=== PATIENT | male | born 1965 | race Caucasian/White ===

== ENCOUNTER 2018-06-08 02:57 | Observation (INO) | payer MEDICARE ==
[2018-06-08 03:44] VITALS: BMI 23.3
--- NOTE | 2018-06-08 04:57 | PDOC ---
Attending Attestation - Resident Resident Name: FreddieBrandon - ED Attending Attestation I have performed the following: I have examined & evaluated the patient, The case was reviewed & discussed with the resident, I agree w/resident's findings & plan - HPI HPI: 06/08/18 06:25 53-year-old male complaining of sharp left-sided chest pain that began around 4 PM. Patient denies active shortness of breath. There is no associated diaphoresis or trauma. - Physicial Exam PE: 06/08/18 06:27 Agree with resident's exam - Medical Decision Making 06/08/18 06:28 53-year-old male with sharp left-sided chest pain EKG showed no acute ST segment changes Plan for chest x-ray and labs, admission to medical service Assessment 324 mg he had been in the emergency department as well as 1/2 inch of nitro paste
[2018-06-08 05:41] LABS: BASO % 0.7 % (0-2.0); EOS % 3.9 % (0-4.5); HEMATOCRIT 34.2 % (35.4-49); HEMOGLOBIN 12.6 GM/dL (11.7-16.9); LYMPH % 16.3 % (8-40); MCH 31.5 pg (25.7-33.7); MCHC 36.7 g/dl (32.0-35.9); MEAN CELL VOLUME 85.8 fl (80-96); MEAN PLT VOLUME 7.4 fl (7.5-11.1); MONO % 6.7 % (3.8-10.2); NEUT % 72.4 % (42.8-82.8); PLATELET COUNT 271 K/MM3 (134-434); RBC 3.99 M/mm3 (4.00-5.60); RDW 12.7 % (11.9-15.9); WHITE BLOOD COUNT 9.8 K/mm3 (4.0-10.0)
--- NOTE | 2018-06-08 06:25 | PDOC ---
History of Present Illness - General Chief Complaint: Chest Pain Stated Complaint: CHEST PAIN Time Seen by Provider: 06/08/18 04:53 History Source: Patient Exam Limitations: No Limitations - History of Present Illness Initial Comments: 06/08/18 06:28 53 yo M with a hx of CVA (04/24/2018 with right UE and LE weakness, right eye deficits, and slurred speech), HTN, HLD, and DM presents to the emergency department with chest pain with sudden onset at 4pm with no previous hx of similar pain. Per the patient, he states it was while at rest, sharp pain, 10/10 , non radiating, with the following associative symptoms of SOB and diaphoresis. Denies nausea and vomiting and worsening pain on exertion. 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 Per the patient, he took his aspirin today at 12 pm (81 mg). Denies the following: fever , chills, headaches, visual changes, abdominal pain, dysuria, hematuria, diarrhea, and hematochezia. Shx: None Meds: Does not know but denies anti-coagulation Allergies: NKDA Social: Denies current tobacco, alcohol, and substance abuse. Has a hx of tobacco and alcohol abuse. 06/08/18 06:31 Past History - Past Medical History Allergies/Adverse Reactions: Allergies Allergy/AdvReac Type Severity Reaction Status Date / Time No Known Allergies Allergy Verified 06/08/18 03:42 Home Medications: Ambulatory Orders Aspirin [Aspirin EC] 81 mg PO DAILY 06/08/18 Atorvastatin Ca [Lipitor] 80 mg PO HS 06/08/18 Clopidogrel Bisulfate [Clopidogrel] 75 mg PO DAILY 06/08/18 Glipizide 5 mg PO DAILY 06/08/18 Lisinopril 10 mg PO DAILY 06/08/18 Metformin HCl [Glucophage] 1,000 mg PO BID 06/08/18 COPD: No Diabetes: Yes HTN: Yes Hypercholesterolemia: Yes - Suicide/Smoking/Psychosocial Hx Smoking History: Never smoked Have you smoked in the past 12 months: No Information on smoking cessation initiated: No Hx Alcohol Use: No Drug/Substance Use Hx: No Review of Systems - Review of Systems Able to Perform ROS?: Yes Is the patient limited Georgian proficient: No Constitutional: Yes: Diaphoresis. No: Chills, Fever, Weakness HEENTM: No: Eye Pain, Recent change in vision, Ear Pain, Nose Pain, Throat Pain , Mouth Pain Respiratory: Yes: Shortness of Breath. No: Cough, SOB with Exertion, Hemoptysis Cardiac (ROS): Yes: Chest Pain. No: Lightheadedness, Palpitations, Syncope, Chest Tightness ABD/GI: No: Constipated, Diarrhea, Nausea, Rectal Bleeding, Vomiting, Tarry Stools : No: Burning, Dysuria, Hematuria, Urgency Musculoskeletal: No: Back Pain, Joint Pain, Neck Pain Integumentary: No: Bruising, Erythema, Rash Neurological: No: Headache, Numbness, Tingling, Tremors, Ataxia, Dizziness Psychiatric: No: Change in Appetite Endocrine: No: Unexplained Weight Gain Hematologic/Lymphatic: No: Anemia *Physical Exam - Vital Signs Last Vital Signs Temp Pulse Resp BP Pulse Ox 98.8 F 83 20 155/99 99 06/08/18 03:05 06/08/18 03:05 06/08/18 03:05 06/08/18 03:05 06/08/18 03:05 - Physical Exam General Appearance: Yes: Nourished, Appropriately Dressed. No: Apparent Distress, Intoxicated HEENT: positive: EOMI, SHANA, Normal Voice, Symmetrical, Pharynx Normal, Hearing Grossly Normal. negative: Pale Conjunctivae, Scleral Icterus (R), Scleral Icterus (L), Muffled/Hoarse voice, Pharyngeal Erythema, Tonsillar Exudate, Tonsillar Erythema, Nasal Congestion, Rhinorrhea, Excessive drooling Neck: positive: Trachea midline, Supple. negative: Tender, Lymphadenopathy (R) , Lymphadenopathy (L), Tender lateral, Tender midline Respiratory/Chest: positive: Lungs Clear, Normal Breath Sounds. negative: Chest Tender, Respiratory Distress, Accessory Muscle Use, Crackles, Rales, Rhonchi, Stridor, Wheezing Cardiovascular: positive: Regular Rhythm, Regular Rate, S1, S2. negative: Systolic Murmur Gastrointestinal/Abdominal: positive: Normal Bowel Sounds, Flat, Soft. negative : Tender, Rebound, Tenderness Lymphatic: negative: Adenopathy Musculoskeletal: positive: Normal Inspection. negative: CVA Tenderness, Vertebral Tenderness Extremity: positive: Normal Capillary Refill, Normal Inspection, Normal Range of Motion. 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 negative: EOM Palsy, Facial Droop , Sensory Deficit Moderate Sedation - Procedure Monitoring Vital Signs: Procedure Monitoring Vital Signs Temperature 98.8 F 06/08/18 03:05 Pulse Rate 83 06/08/18 03:05 Respiratory Rate 20 06/08/18 03:05 Blood Pressure 155/99 06/08/18 03:05 O2 Sat by Pulse Oximetry (%) 99 06/08/18 03:05 Heart Score/ECG Review - ECG Intrepretation Comment:: 06/08/18 06:39 ventricular rate is 78 bpm, CO is 162 ms, QRS is 90 ms, QTc is 408 ms. Sinus rhythm with fusion complexes. No ST elevations or depressions. ED Treatment Course - LABORATORY CBC & Chemistry Diagram: 06/09/18 05:30 06/09/18 05:30 - ADDITIONAL ORDERS Additional order review: 06/08/18 05:06 RBC 3.99 L MCV 85.8 MCHC 36.7 H RDW 12.7 MPV 7.4 L Neutrophils % 72.4 Lymphocytes % 16.3 Monocytes % 6.7 Eosinophils % 3.9 Basophils % 0.7 - RADIOLOGY Radiology Studies Ordered: Category Date Time Status CHEST X-RAY PORTABLE* [RAD] Stat Radiology 06/08/18 04:44 Taken Medical Decision Making - Medical Decision Making 06/08/18 06:40 53 yo M with a hx of CVA (04/24/2018 with right UE and LE weakness, right eye deficits, and slurred speech), HTN, HLD, and DM presents to the emergency department with chest pain with sudden onset at 4pm with no previous hx of similar pain Initial vitals; Initial Vital Signs Temp Pulse Resp BP Pulse Ox 98.8 F 83 20 155/99 99 06/08/18 03:05 06/08/18 03:05 06/08/18 03:05 06/08/18 03:05 06/08/18 03:05 Work up:" ddx: ACS work up, pericarditis vs PNA vs pleuritis vs msk pain Laboratory Tests 06/08/18 06/08/18 05:06 05:06 WBC 9.8 RBC 3.99 L Hgb 12.6 Hct 34.2 L MCV 85.8 MCH 31.5 MCHC 36.7 H RDW 12.7 Plt Count 271 MPV 7.4 L Absolute Neuts (auto) 7.1 Neutrophils % 72.4 Lymphocytes % 16.3 Monocytes % 6.7 Eosinophils % 3.9 Basophils % 0.7 Nucleated RBC % 0 Sodium 138 Potassium 4.5 Chloride 104 Carbon Dioxide 29 Anion Gap 5 L BUN 18 Creatinine 1.0 Creat Clearance w eGFR > 60 Random Glucose 164 H Calcium 8.6 Total Bilirubin 1.1 H AST 16 ALT 26 Alkaline Phosphatase 178 H Creatine Kinase 60 Troponin I < 0.02 B-Natriuretic Peptide 139.6 H Total Protein 6.8 Albumin 3.6 no troponin increase. BNP elevated midly. CXR does not show acute infiltrate. EKG shows no ST elevations or depressions. will admit patient to obs tele. Patient signed out to Dr. Hernandez. Dispo: Admit 06/08/18 07:17 *DC/Admit/Observation/Transfer Diagnosis at time of Disposition: Chest pain Qualifiers: Chest pain type: unspecified Qualified Code(s): R07.9 - Chest pain, unspecified - Referrals - Patient Instructions - Post Discharge Activity
[2018-06-08] MEDS ORDERED: ASPIRIN 81 MG CHEWABLE TABLETS PO ONE (06:27)
[2018-06-08] MEDS ORDERED: NITROGLYCERIN SUBLINGUAL 1/200 0.3 MG BTL SL ONE (06:27)
[2018-06-08] MEDS ORDERED: ASPIRIN 81 MG CHEWABLE TABLETS ONE (06:31)
[2018-06-08] MEDS ORDERED: NITROGLYCERIN SUBLINGUAL 1/150 0.4 MG TAB SL ONE (06:31)
[2018-06-08] MEDS ORDERED: NITROGLYCERIN SUBLINGUAL 1/150 0.4 MG TAB ONE (06:34)
[2018-06-08 06:35] LABS: ALBUMIN 3.6 g/dl (3.4-5.0); ALK PHOS 178 U/L (45-117); ANION GAP 5 MMOL/L (8-16); BILIRUBIN,TOTAL 1.1 mg/dL (0.2-1); BLOOD UREA NITROGEN 18 mg/dL (7-18); CALCIUM 8.6 mg/dL (8.5-10.1); CHLORIDE 104 mmol/L (98-107); CO2 29 mmol/L (21-32); GLUCOSE,RANDOM 164 mg/dL (74-106); N-TERMINAL BNP 139.6 pg/ml (5-125); POTASSIUM 4.5 mmol/L (3.5-5.1); SGOT/AST 16 U/L (15-37); SGPT/ALT 26 U/L (13-61); SODIUM 138 mmol/L (136-145); TOT PROT 6.8 g/dl (6.4-8.2)
--- NOTE | 2018-06-08 07:19 | PDOC ---
*Physical Exam - Vital Signs Last Vital Signs Temp Pulse Resp BP Pulse Ox 98.8 F 83 20 155/99 99 06/08/18 03:05 06/08/18 03:05 06/08/18 03:05 06/08/18 03:05 06/08/18 03:05 Heart Score/ECG Review - History History: Moderately suspicious - Electrocardiogram EKG: Normal - Age Age: 45-65 - Risk Factors Risk Factors Heart Score: Yes Hx Hypercholesterolemia, Yes Hx Hypertension, Yes Hx Diabetes Based on the list above the patient has:: >/=3 risk factors or Hx atherosclerotic disease - Troponin Troponin: </= normal limit - Score Heart Score - Total: 4 ED Treatment Course - LABORATORY CBC & Chemistry Diagram: 06/08/18 05:06 06/08/18 05:06 - ADDITIONAL ORDERS Additional order review: Laboratory Results 06/08/18 05:06 Sodium 138 Potassium 4.5 Chloride 104 Carbon Dioxide 29 Anion Gap 5 L BUN 18 Creatinine 1.0 Creat Clearance w eGFR > 60 Random Glucose 164 H Calcium 8.6 Total Bilirubin 1.1 H AST 16 ALT 26 Alkaline Phosphatase 178 H Creatine Kinase 60 Troponin I < 0.02 B-Natriuretic Peptide 139.6 H Total Protein 6.8 Albumin 3.6 06/08/18 05:06 RBC 3.99 L MCV 85.8 MCHC 36.7 H RDW 12.7 MPV 7.4 L Neutrophils % 72.4 Lymphocytes % 16.3 Monocytes % 6.7 Eosinophils % 3.9 Basophils % 0.7 - Medications Given in the ED: ED Medications Discontinued Medications Generic Name Dose Route Start Last Admin Trade Name Freq PRN Reason Stop Dose Admin Aspirin 324 mg 06/08/18 06:27 06/08/18 06:32 Asa - PO 06/08/18 06:28 324 mg ONCE ONE Administration Nitroglycerin 0.3 mg 06/08/18 06:27 06/08/18 06:46 Nitrostat - SL 06/08/18 06:28 Not Given ONCE ONE Nitroglycerin 0.4 mg 06/08/18 06:31 06/08/18 06:35 Nitrostat - SL 06/08/18 06:32 0.4 mg ONCE ONE Administration Medical Decision Making - Medical Decision Making 06/08/18 07:[address] Frazier. Patient is a 53 yo male w/ pmh of CVA (12/24/18, RUE/RLE weakness w/ R eye deficits and slurred speech), HTN, HLD, DM who presents for evaluation of chest pain. Patient troponin negative. Will need to be admitted to hospital for cardiology follow-up/establishment and echo. 06/08/18 07:29 Patient admitted to hospitalist team. *DC/Admit/Observation/Transfer Diagnosis at time of Disposition: Chest pain Qualifiers: Chest pain type: unspecified Qualified Code(s): R07.9 - Chest pain, unspecified - Discharge Dispostion Decision to Admit order: Yes - Referrals - Patient Instructions - Post Discharge Activity
--- NOTE | 2018-06-08 08:20 | HP ---
CHIEF COMPLAINT: chest pain PCP: none HISTORY OF PRESENT ILLNESS: Patient is a peruvian speaking, 53 yo M with a PMHx of CVA (04/[address] [facility] with residual RUE,RLE weakness), HTN, HLD, questionable DM, presented because of sudden onset, 02/08, non-radiating, pressure-like, L sided chest pain that occurred yesterday while walking in his house. He says the chest pain lasted about 3 minutes. He denies SOB, diaphoresis. Patient says this never happened to him before. He says he has not seen a PCP since having the stroke and has never seen a spool fixer. He does not remember having any imaging or cardiac workup. Patient also does not remember the pharmacy name or the name of the medications he's taking. He currently denies chest pain. He denies sob, syncope , palpitations, PEPE, nausea, vomiting, headaches, fevers, cough, urinary problems. ER course was notable for: (1)ASA 324, Nitrostat (2)EKG- NSR, no st changes Recent Travel: denies PAST MEDICAL HISTORY: per HPI PAST SURGICAL HISTORY: denies Social History: Smokin cigarettes a day Alcohol: says he used to drink a lot, but has not drank in months. Drugs: denies Lives at home with his mother Walks with a Cane Family History: Allergies No Known Allergies Allergy (Verified 06/08/18 03:42) HOME MEDICATIONS: REVIEW OF SYSTEMS CONSTITUTIONAL: Absent: fever, chills, diaphoresis, generalized weakness, malaise, loss of appetite, weight change HEENT: Absent: rhinorrhea, nasal congestion, throat pain, throat swelling, difficulty swallowing, mouth swelling, ear pain, eye pain, visual changes CARDIOVASCULAR: chest pain Absent: syncope, palpitations, irregular heart rate, lightheadedness, peripheral edema RESPIRATORY: Absent: cough, shortness of breath, dyspnea with exertion, orthopnea, wheezing, stridor, hemoptysis GASTROINTESTINAL: Absent: abdominal pain, abdominal distension, nausea, vomiting, diarrhea, constipation, melena, hematochezia GENITOURINARY: Absent: dysuria, frequency, urgency, hesitancy, hematuria, flank pain, genital pain MUSCULOSKELETAL: Absent: myalgia, arthralgia, joint swelling, back pain, neck pain SKIN: Absent: rash, itching, pallor HEMATOLOGIC/IMMUNOLOGIC: Absent: easy bleeding, easy bruising, lymphadenopathy, frequent infections ENDOCRINE: Absent: unexplained weight gain, unexplained weight loss, heat intolerance, cold intolerance NEUROLOGIC: Absent: headache, focal weakness or paresthesias, dizziness, unsteady gait, seizure, mental status changes, bladder or bowel incontinence PSYCHIATRIC: Absent: anxiety, depression, suicidal or homicidal ideation, hallucinations. PHYSICAL EXAMINATION Vital Signs - 24 hr 06/08/18 03:05 Temperature 98.8 F Pulse Rate 83 Respiratory 20 Rate Blood Pressure 155/99 O2 Sat by Pulse 99 Oximetry (%) GENERAL: a/o x 3, comfortable HEAD: Normal with no signs of trauma. EYES: Pupils equal, round and reactive to light, extraocular movements intact, sclera anicteric, conjunctiva clear. EARS, NOSE, THROAT: oropharynx clear without exudates. Moist mucous membranes. NECK: supple, no JVD LUNGS: Breath sounds equal, clear to auscultation bilaterally. No wheezes, and no crackles. HEART: Regular rate and rhythm, normal S1 and S2 without murmur, rub or gallop. ABDOMEN: Soft, nontender, not distended, normoactive bowel sounds, no guarding, no rebound, no masses. LOWER EXTREMITIES: 2+ pulses . No peripheral edema. NEUROLOGICAL: Abdnormal gait, Cranial nerves II-XII intact. mildly aphasic. face seems symmetric, no obvious droop, 5/5 strength throughout with L RUE,RLE stronger than R. Weaker dorsiflexion with R foot compared to left. PSYCHIATRIC: Cooperative. Good eye contact. Laboratory Results - last 24 hr 06/08/18 06/08/18 05:06 05:06 WBC 9.8 RBC 3.99 L Hgb 12.6 Hct 34.2 L MCV 85.8 MCH 31.5 MCHC 36.7 H RDW 12.7 Plt Count 271 MPV 7.4 L Absolute Neuts (auto) 7.1 Neutrophils % 72.4 Lymphocytes % 16.3 Monocytes % 6.7 Eosinophils % 3.9 Basophils % 0.7 Nucleated RBC % 0 Sodium 138 Potassium 4.5 Chloride 104 Carbon Dioxide 29 Anion Gap 5 L BUN 18 Creatinine 1.0 Creat Clearance w eGFR > 60 Random Glucose 164 H Calcium 8.6 Total Bilirubin 1.1 H AST 16 ALT 26 Alkaline Phosphatase 178 H Creatine Kinase 60 Troponin I < 0.02 B-Natriuretic Peptide 139.6 H Total Protein 6.8 Albumin 3.6 ASSESSMENT/PLAN: 53 yo M with a PMHx of CVA (04/[address] [facility], with residual RUE,RLE weakness), HTN, HLD, DM, presented with L sided, substernal chest pain. #Chest pain/Unstable Angina -R/O ACS -trop negative x 2 -EKG NSR, no ST changes. -ASA, Nitrostat given in ED, -repeat trop -Echo -Cardiology consulted: Dr. Tang -For AM nuclear stress test -Lipid Panel -CXR unremarkable -cont. Home aspirin 81mg, Plavix 75mg -Cont home Lipitor 80mg -Tele monitoring #Elevated Alk Phos -GGT -repeat labs tomorrow #HTN -cont home Lisinpril 10mg -monitor #DM -ISS -BGM -Hgb A1c -Hold Metformin 1000mg BID -Hold Glipizide 5mg #FEN -No fluids -monitor -sodium controlled -NPO after midnight for stress test #DVT -Hep sq Visit type - Emergency Visit Emergency Visit: Yes ED Registration Date: 06/08/18 Care time: The patient presented to the Emergency Department on the above date and was hospitalized for further evaluation of their emergent condition. - New Patient This patient is new to me today: Yes Date on this admission: 06/12/18 - Critical Care Critical Care patient: No
[2018-06-08 08:51] LABS: CHOLESTEROL 106 mg/dL (50-200); HDL CHOLESTEROL 38 mg/dL (40-60); TRIGLYCERIDES 89 mg/dL (0-150)
--- NOTE | 2018-06-08 09:43 | EKG ---
Test Reason : Blood Pressure : / mmHG Vent. Rate : 078 BPM Atrial Rate : 078 BPM P-R Int : 162 ms QRS Dur : 090 ms QT Int : 358 ms P-R-T Axes : 050 006 056 degrees QTc Int : 408 ms SINUS RHYTHM WITH FUSION COMPLEXES OTHERWISE NORMAL ECG NO PREVIOUS ECGS AVAILABLE Confirmed by SABRA BURKS, MEENU ([id number]) on 06/08/2018 9:42:48 AM Referred By: Confirmed By:MEENU MONTAÑO MD
[2018-06-08] MEDS ORDERED: HEPARIN NA (PORCINE) 5,000 UNITS/ML 1ML VIAL SQ SCH (10:00)
[2018-06-08] MEDS ORDERED: HEPARIN NA (PORCINE) 5,000 UNITS/ML 1ML VIAL ONE ×2 (10:18→23:47)
[2018-06-08] MEDS ORDERED: LISINOPRIL 5 MG TABLET (FP) ONE (10:18)
[2018-06-08] MEDS: LISINOPRIL 10 MG TABLET (FP) PO SCH (10:30)
[2018-06-08] MEDS: CLOPIDOGREL BISULFATE 75 MG TABLET (FP) PO SCH (10:30)
[2018-06-08] MEDS: INSULIN SLIDING SCALE (NOVOLOG) 1 VIAL SQ SCH ×2 (11:23→18:13)
[2018-06-08] MEDS ORDERED: INSULIN (NOVOLOG) ASPART 100 UNITS/ML 10ML VIAL ONE ×2 (11:25→18:15)
[2018-06-08 11:42] LABS: GAMMA GLUTAMYL TRANSPEPTIDASE 30 U/L (5-85)
--- NOTE | 2018-06-08 11:47 | CON.CARD ---
Cardiology Consult (text) - Consultation Consultation Note: cc: cp hpi: 53 m hx cva, htn, hld, dm here with cp. Last night relaxing and felt left sided chest squeezing, no radiation. Resolved in about 2 hours. No sob palps dizzy loc pnd orthopnea le edema. No hx hrt dz, ambulates with cane. Feels better now. pmh: per hpi psh: nc social: +cigs fam: no premature cad, scd ros: per hpi; no nvd fever cough vision changes gib hematuria dysuria meds: Home Medications Medication Instructions Recorded Aspirin [Aspirin EC] 81 mg PO DAILY 06/08/18 Atorvastatin Ca [Lipitor] 80 mg PO HS 06/08/18 Clopidogrel Bisulfate [Clopidogrel] 75 mg PO DAILY 06/08/18 Glipizide 5 mg PO DAILY 06/08/18 Lisinopril 10 mg PO DAILY 06/08/18 Metformin HCl [Glucophage] 1,000 mg PO BID 06/08/18 pe: Vital Signs Period Temp Pulse Resp BP Sys/Londono Pulse Ox Last 24 Hr 97.8 F-98.8 F 72-83 18-20 152-155/98-109 99-100 nad no jvd rrr s1s2 no mrg cta bl nl eff aaox3 no le e/c/c abd nd nt pos bs no jaundice diaphoresis pos dp pt no carotid bruits Laboratory Last Values WBC 9.8 K/mm3 (4.0-10.0) 06/08/18 05:06 RBC 3.99 M/mm3 (4.00-5.60) L 06/08/18 05:06 Hgb 12.6 GM/dL (11.7-16.9) 06/08/18 05:06 Hct 34.2 % (35.4-49) L 06/08/18 05:06 MCV 85.8 fl (80-96) 06/08/18 05:06 MCH 31.5 pg (25.7-33.7) 06/08/18 05:06 MCHC 36.7 g/dl (32.0-35.9) H 06/08/18 05:06 RDW 12.7 % (11.9-15.9) 06/08/18 05:06 Plt Count 271 K/MM3 (134-434) 06/08/18 05:06 MPV 7.4 fl (7.5-11.1) L 06/08/18 05:06 Absolute Neuts (auto) 7.1 K/mm3 (1.5-8.0) 06/08/18 05:06 Neutrophils % 72.4 % (42.8-82.8) 06/08/18 05:06 Lymphocytes % 16.3 % (8-40) 06/08/18 05:06 Monocytes % 6.7 % (3.8-10.2) 06/08/18 05:06 Eosinophils % 3.9 % (0-4.5) 06/08/18 05:06 Basophils % 0.7 % (0-2.0) 06/08/18 05:06 Nucleated RBC % 0 % (0-0) 06/08/18 05:06 Sodium 138 mmol/L (136-145) 06/08/18 05:06 Potassium 4.5 mmol/L (3.5-5.1) 06/08/18 05:06 Chloride 104 mmol/L (98-107) 06/08/18 05:06 Carbon Dioxide 29 mmol/L (21-32) 06/08/18 05:06 Anion Gap 5 MMOL/L (8-16) L 06/08/18 05:06 BUN 18 mg/dL (7-18) 06/08/18 05:06 Creatinine 1.0 mg/dL (0.55-1.3) 06/08/18 05:06 Creat Clearance w eGFR > 60 (>60) 06/08/18 05:06 POC Glucometer 198 UNITS (80-120) 06/08/18 11:21 Random Glucose 164 mg/dL (74-106) H 06/08/18 05:06 Hemoglobin A1c % 9.6 % (4.2-6.3) H 06/08/18 05:06 Calcium 8.6 mg/dL (8.5-10.1) 06/08/18 05:06 Total Bilirubin 1.1 mg/dL (0.2-1) H 06/08/18 05:06 GGT 30 U/L (5-85) 06/08/18 10:24 AST 16 U/L (15-37) 06/08/18 05:06 ALT 26 U/L (13-61) 06/08/18 05:06 Alkaline Phosphatase 178 U/L (45-117) H 06/08/18 05:06 Creatine Kinase 60 U/L (26-308) 06/08/18 05:06 Troponin I < 0.02 ng/ml (0.00-0.05) 06/08/18 10:24 B-Natriuretic Peptide 139.6 pg/ml (5-125) H 06/08/18 05:06 Total Protein 6.8 g/dl (6.4-8.2) 06/08/18 05:06 Albumin 3.6 g/dl (3.4-5.0) 06/08/18 05:06 Triglycerides 89 mg/dL (0-150) 06/08/18 05:06 Cholesterol 106 mg/dL (50-200) 06/08/18 05:06 Total LDL Cholesterol 54 mg/dL (5-100) 06/08/18 05:06 HDL Cholesterol 38 mg/dL (40-60) L 06/08/18 05:06 cxr: clear lungs ecg: sr, nl intervals no ischemic changes a/p: 53 m hx cva, htn, hld, dm here with cp. cp: -no signs acs, trop neg x2 -cp resolved -will eval further with echo and nuclear stress test, monitor on tele htn: -resume home meds hld: -resume statin
--- NOTE | 2018-06-08 12:43 | PN ---
Teaching Attending Note Name of Resident: Luis Manuel Dixon ATTENDING PHYSICIAN STATEMENT I saw and evaluated the patient. I reviewed the resident's note and discussed the case with the resident. I agree with the resident's findings and plan as documented. SUBJECTIVE: CC: CP HPI: 53 y/o man with recently diagnosed DM, HTN, HL, CVA in 04/18 who presented with CP. last night , he was awoken from sleep with left sided cp , that was mild but bothered him. denied any radiation to Extremity or neck. duration of pain is not clear 3 min per him, and 2-3 hours per his mom. he denied CP or SOB. he denies any PEPE, or previous episodes of CP. at [facility] he was prescribed all his meds then he started going to [facility] for primary care. He thinks he had echo done in april but no stress test. Further details about his admission are unclear. He also has residual R sided weakness and per his mom, memory problems. he ambulates with cane and walker at home. OBJECTIVE: NAD, awake, alert , cooperative . HEENT: EOMi, round equal pupils, reactive to light. MMM, erythema and scaly skin of face over nose and cheecks. erythema over vyas. nl warmth. CV: RRR, no MRG , nO JVD, no bruits over carotids Lungs: CTAB Ext : no edema or erythema. R lateral malleolus dry wound with no discharge . no fungal infection among toes. Abd: soft, NT, ND , NL BS Neuro :EOMI, round equal pupils, reactive to light. No facial droop. tongue at mid line. nl facial sensation . strength is 5/5 in LUE , and LLE proximally and distally. RUE: 4/5 shoulder flexion and biceps /triceps . 5/5 shoulder abduction . 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 5/5 in knee flexion /extension , ankle dorsiflexion and plantar flexion . reflexes : 2+ biceps and BR, also 2+ knee jerk B/l . sensation to light touch NL. ASSESSMENT AND PLAN: 53 y/o man with recently diagnosed DM, HTN, HL, CVA in 04/18 who presented with CP. 1- CP: This Cp could have been unstable angina. Now chest pain free. He has significant risk factors. EKG with sinus rhythm, J point elevation in V2/V3. Trop nl x 2. - tele - Obtain echo from [facility] and any other w/u - Stress test . - Cont anti-platelet. Not clear why on ASA and plavix. further determination will depend on stress test results. - cont statin, and ACEI. 2- H/O DM : hold metformina nd glipizide and start SSI 3- HTN: Lisinopril at home dose. if needed can increase dose or start BB 4- HLP: cont lipitor . LDL 54 Heparin SQ . dispo : depends on stress test results
[2018-06-08] MEDS: HEPARIN NA (PORCINE) 5,000 UNITS/ML 1ML VIAL SQ SCH (14:30)
--- NOTE | 2018-06-08 16:40 | EKG ---
Test Reason : Blood Pressure : / mmHG Vent. Rate : 077 BPM Atrial Rate : 077 BPM P-R Int : 164 ms QRS Dur : 092 ms QT Int : 374 ms P-R-T Axes : 048 004 054 degrees QTc Int : 423 ms NORMAL SINUS RHYTHM NORMAL ECG WHEN COMPARED WITH ECG OF 08-JUN-2018 03:29, FUSION COMPLEXES ARE NO LONGER PRESENT Confirmed by MEENU MONTAÑO MD ([id number]) on 06/08/2018 4:39:32 PM Referred By: KEYSHAWN AVENDAÑO Confirmed By:MEENU MONTAÑO MD
[2018-06-08 18:18] VITALS: TEMP 98.3
[2018-06-08] MEDS ORDERED: ATORVASTATIN CA 80 MG TABLET (FP) PO SCH (22:00)
[2018-06-08] MEDS ORDERED: ATORVASTATIN CA 40 MG TABLET (FP) ONE (23:47)
[2018-06-09] MEDS ORDERED: INSULIN REGULAR HUMAN 100 UNITS/ML *VIAL ONE (00:01)
[2018-06-09] MEDS: HEPARIN NA (PORCINE) 5,000 UNITS/ML 1ML VIAL SQ SCH ×3 (00:09→14:12)
[2018-06-09] MEDS: INSULIN SLIDING SCALE (NOVOLOG) 1 VIAL SQ SCH ×3 (00:09→11:10)
[2018-06-09] MEDS ORDERED: HEPARIN NA (PORCINE) 5,000 UNITS/ML 1ML VIAL ONE (07:08)
[2018-06-09 07:12] LABS: INR 1.07 (0.83-1.09); PROTHROMBIN TIME (PATIENT) 12.6 SEC (9.7-13.0)
[2018-06-09 07:38] LABS: ALBUMIN 3.4 g/dl (3.4-5.0); ALK PHOS 128 U/L (45-117); ANION GAP 6 MMOL/L (8-16); BILIRUBIN,TOTAL 1.4 mg/dL (0.2-1); BLOOD UREA NITROGEN 21 mg/dL (7-18); CALCIUM 8.9 mg/dL (8.5-10.1); CHLORIDE 108 mmol/L (98-107); CO2 26 mmol/L (21-32); CREATININE 0.8 mg/dL (0.55-1.3); GLUCOSE,RANDOM 120 mg/dL (74-106); MAGNESIUM 1.7 mg/dL (1.8-2.4); PHOSPHOROUS 4.6 mg/dL (2.5-4.9); POTASSIUM 4.3 mmol/L (3.5-5.1); SGOT/AST 17 U/L (15-37); SGPT/ALT 25 U/L (13-61); SODIUM 141 mmol/L (136-145); TOT PROT 6.2 g/dl (6.4-8.2)
[2018-06-09 07:40] LABS: BASO % 0.8 % (0-2.0); EOS % 3.7 % (0-4.5); HEMOGLOBIN 12.5 GM/dL (11.7-16.9); LYMPH % 23.1 % (8-40); MCHC 36.7 g/dl (32.0-35.9); MEAN PLT VOLUME 7.4 fl (7.5-11.1); MONO % 7.1 % (3.8-10.2); NEUT % 65.3 % (42.8-82.8); PLATELET COUNT 245 K/MM3 (134-434); RBC 3.91 M/mm3 (4.00-5.60); RDW 12.7 % (11.9-15.9); WHITE BLOOD COUNT 8.7 K/mm3 (4.0-10.0)
[2018-06-09 08:04] VITALS: PULSE 77
[2018-06-09] MEDS ORDERED: REGADENOSON 0.4 MG/5 ML PRE-FILLED SYRINGE IVPUSH ONE ×2 (09:11→10:00)
--- NOTE | 2018-06-09 09:31 | ECHO ---
Name: VAMSHI RAMIREZ Exam:Adult Echocardiogram Study Date: 06/09/2018 08:22 AM Age: 53 yrs Reason For Study: Chest pain Height: 69 in Weight: 158 lb BSA: 1.9 m2 MMode/2D Measurements & Calculations IVSd: 1.2 cm Ao root diam: 3.8 cm LVIDd: 4.4 cm LA dimension: 3.6 cm LVIDs: 3.0 cm LVPWd: 1.1 cm EDV(Teich): 87.8 ml LVOT diam: 2.2 cm ESV(Teich): 34.3 ml Doppler Measurements & Calculations MV E max melchor: 48.9 cm/sec Ao V2 max: 137.8 cm/sec MV A max melchor: 77.0 cm/sec Ao max P.6 mmHg MV E/A: 0.63 MV dec time: 0.23 sec TR max melchor: 157.5 cm/sec Med Peak E' Melchor: 3.4 cm/sec TR max P.9 mmHg Med E/e': 14.4 Lat Peak E' Melchor: 9.7 cm/sec Lat E/e': 5.1 Left Ventricle There is mild concentric left ventricular hypertrophy. Left ventricular systolic function is normal. Ejection Fraction = 50-55%. The transmitral spectral Doppler flow pattern is suggestive of impaired LV relaxat ion. Right Ventricle The right ventricle is normal in size and function. Atria Normal left and right atrial size and function. Mitral Valve The mitral valve is normal in structure and function. There is no mitral valve stenosis. There is tra ce mitral regurgitation. Tricuspid Valve The tricuspid valve is normal in structure and function. Aortic Valve The aortic valve is trileaflet. No hemodynamically significant valvular aortic stenosis. No aortic regurgitation is present. Pulmonic Valve The pulmonic valve is not well seen, but is grossly normal. There is no pulmonic valvular stenosis. Great Vessels Mild aortic root dilatation. Mildly dilated ascending aorta. Pericardium/Pleura There is no pericardial effusion. Interpretation Summary There is mild concentric left ventricular hypertrophy. Left ventricular systolic function is normal. Ejection Fraction = 50-55%. The transmitral spectral Doppler flow pattern is suggestive of impaired LV relaxation. The right ventricle is normal in size and function. Mild aortic root dilatation. Mildly dilated ascending aorta. There is no pericardial effusion. MD Still *Travis 06/09/2018 09:31 AM
[2018-06-09] MEDS: CLOPIDOGREL BISULFATE 75 MG TABLET (FP) PO SCH (09:57)
[2018-06-09] MEDS: LISINOPRIL 10 MG TABLET (FP) PO SCH (09:57)
[2018-06-09] MEDS ORDERED: ASPIRIN COATED 81 MG TABLET.EC PO SCH (10:00)
[2018-06-09 10:53] VITALS: BP 138/98
--- NOTE | 2018-06-09 11:49 | DS ---
Physical Examination Vital Signs: Vital Signs Temperature 98.3 F 06/09/18 10:34 Pulse Rate 77 06/09/18 10:34 Respiratory Rate 18 06/09/18 10:34 Blood Pressure 138/98 06/09/18 10:34 O2 Sat by Pulse Oximetry (%) 99 06/09/18 10:34 no chest pain no shortness Constitutional: Yes: Calm Cardiovascular: Yes: Regular Rate and Rhythm, S1, S2 Respiratory: Yes: CTA Bilaterally Gastrointestinal: Yes: Normal Bowel Sounds, Soft Edema: No Neurological: Yes: Alert, Oriented Labs: CBC, BMP 06/09/18 05:30 06/09/18 05:30 Discharge Summary Reason For Visit: CHEST PAIN Current Active Problems Chest pain (Acute) Other Procedures: echo LV systolic function is normal Hospital Course: CHIEF COMPLAINT: chest pain PCP: none HISTORY OF PRESENT ILLNESS: Patient is a khmer speaking, 53 yo M with a PMHx of CVA (04/[address] [facility], with residual RUE,RLE weakness), HTN, HLD, questionable DM, presented because of sudden onset, 02/08, non-radiating, pressure-like, L sided chest pain that occurred yesterday while walking in his house. He says the chest pain lasted about 3 minutes. He denies SOB, diaphoresis. Patient says this never happened to him before. He says he has not seen a PCP since having the stroke and has never seen a pulp mixer. He does not remember having any imaging or cardiac workup. Patient also does not remember the pharmacy name or the name of the medications he's taking. He currently denies chest pain. He denies sob, syncope , palpitations, PEPE, nausea, vomiting, headaches, fevers, cough, urinary problems. ER course was notable for: (1)ASA 324, Nitrostat (2)EKG- NSR, no st changes in hospital: patient had stress test seen by cardiology Condition: Improved - Instructions Disposition: HOME - Home Medications Comprehensive Discharge Medication List: Ambulatory Orders Aspirin [Aspirin EC] 81 mg PO DAILY 06/08/18 Atorvastatin Ca [Lipitor] 80 mg PO HS 06/08/18 Clopidogrel Bisulfate [Clopidogrel] 75 mg PO DAILY 06/08/18 Glipizide 5 mg PO DAILY 06/08/18 Lisinopril 10 mg PO DAILY 06/08/18 Metformin HCl [Glucophage] 1,000 mg PO BID 06/08/18
--- NOTE | 2018-06-09 12:27 | PN ---
Progress Note (short form) - Note Progress Note: s: no cp sob palps dizzy Current Medications Generic Name Dose Route Start Last Admin Trade Name Jamel PRN Reason Stop Dose Admin Aspirin 81 mg 06/09/18 10:00 06/09/18 09:57 Ecotrin - PO 81 mg DAILY SEE Administration Atorvastatin Calcium 80 mg 06/08/18 22:00 06/09/18 00:09 Lipitor - PO 80 mg HS SEE Administration Clopidogrel Bisulfate 75 mg 06/08/18 10:00 06/09/18 09:57 Plavix - PO 75 mg DAILY SEE Administration Heparin Sodium (Porcine) 5,000 unit 06/08/18 14:00 06/09/18 07:14 Heparin - SQ 5,000 unit TID SEE Administration Insulin Aspart 1 vial 06/08/18 11:00 06/09/18 11:10 Novolog Vial Sliding Scale - SQ 2 unit ACHS SEE Administration Protocol Lisinopril 10 mg 06/08/18 10:00 06/09/18 09:57 Prinivil PO 10 mg DAILY SEE Administration Vital Signs Period Temp Pulse Resp BP Sys/Londono Pulse Ox Last 24 Hr 98.3 F-98.5 F 74-84 16-18 122-144/67-98 99-100 nad no jvd rrr s1s2 no mrg cta bl nl eff aaox3 no le e/c/c abd nd nt pos bs no jaundice diaphoresis CBC, BMP 06/09/18 05:30 06/09/18 05:30 cxr: clear lungs ecg: sr, nl intervals no ischemic changes echo 06/2018: mild lvh, nl lv/rv, no sig valve path, mild ao root dil a/p: 53 m hx cva, htn, hld, dm here with cp. cp: -no signs acs, trop neg -cp resolved -echo and mibi both unremarkable htn: -resume home meds hld: -resume statin cardiac banks stable for dc
== END 2018-06-09 14:14 | disposition home or self-care (01) ==
LOC: JER 02:57 → JERBED 07:19 → J4W 06-09 10:09
PROVIDERS: ADMIT Internal Medicine; ATTEND Family Medicine
PROC: 3E033GC Introduction of Other Therapeutic Substance into Peripheral Vein, Percutaneous Approach (ICD-10-PCS; principal; 2018-06-08)
PROC: 3E013VG Introduction of Insulin into Subcutaneous Tissue, Percutaneous Approach (ICD-10-PCS; 2018-06-08)
PROC: 3E013GC Introduction of Other Therapeutic Substance into Subcutaneous Tissue, Percutaneous Approach (ICD-10-PCS; 2018-06-08)
DX: R07.9 Chest pain, unspecified (principal); I10 Essential (primary) hypertension; R74.8 Abnormal levels of other serum enzymes; E78.5 Hyperlipidemia, unspecified; E11.9 Type 2 diabetes mellitus without complications; I69.351 Hemiplegia and hemiparesis following cerebral infarction affecting right dominant side; I69.398 Other sequelae of cerebral infarction
CPT/HCPCS: 36415; 71045-TC-FY; 78452-TC; 80053; 80061; 82550; 82962; 82977; 83036; 83721; 83735; 83880; 84100; 84484; 85025; 85610; 93005; 93010; 93017; 93306-TC; 99285-25; A9502; G0378; J1644; J2785

== ENCOUNTER 2018-06-21 12:11 | Emergency (ER) | payer SELFPAY ==
[2018-06-21 12:33] VITALS: TEMP 98.3; BMI 26.6
[2018-06-21] MEDS ORDERED: ASPIRIN 325 MG TABLET PO ONE (12:56)
--- NOTE | 2018-06-21 13:10 | PDOC ---
History of Present Illness <Yue Ventura - Last Filed: 06/21/18 14:20> <Denny Bee - Last Filed: 06/21/18 16:38> - General Chief Complaint: Chest Pain Stated Complaint: LT CHEST PAIN Time Seen by Provider: 06/21/18 12:44 - History of Present Illness Initial Comments: 06/21/18 13:06 "The patient is a 53 year old male, with a significant PMH of CVA (04/24/2018), HTN, HLD, and DM who presents to the emergency department complaining of left sided chest pain which began this morning and was sharp at onset. Initially 10/ 10 but improved to 7/10. Denies SOB. Denies N/V. Denies abdominal pain. Denies radiation of pain to back or anywhere else. Denies exertional or pleuritic component of pain. The patient states his symptoms are similar to what he experienced a few weeks ago when he was admitted to the hospital. The patient denies shortness of breath, headache and dizziness. Denies fever, chills, nausea, vomit, diarrhea and constipation. Denies dysuria, frequency, urgency and hematuria. Allergies: NKA (Denny Bee) Past History <Yue Ventura - Last Filed: 06/21/18 14:20> - Past Medical History CVA: Yes (Residual right sided hemiparesis) COPD: No Diabetes: Yes HTN: Yes Hypercholesterolemia: Yes - Immunization History Immunization Up to Date: Yes - Suicide/Smoking/Psychosocial Hx Smoking History: Former smoker Have you smoked in the past 12 months: No Number of Cigarettes Smoked Daily: 4 Information on smoking cessation initiated: No 'Breaking Loose' booklet given: 06/09/18 Hx Alcohol Use: No Drug/Substance Use Hx: No <Mariel Beean - Last Filed: 06/21/18 16:38> - Past Medical History Allergies/Adverse Reactions: Allergies Allergy/AdvReac Type Severity Reaction Status Date / Time No Known Allergies Allergy Verified 06/08/18 03:42 Home Medications: Ambulatory Orders Aspirin [Aspirin EC] 81 mg PO DAILY 06/08/18 Atorvastatin Ca [Lipitor] 80 mg PO HS 06/08/18 Clopidogrel Bisulfate [Clopidogrel] 75 mg PO DAILY 06/08/18 Glipizide 5 mg PO DAILY 06/08/18 Lisinopril 10 mg PO DAILY 06/08/18 Metformin HCl [Glucophage] 1,000 mg PO BID 06/08/18 Review of Systems <Yue Ventura - Last Filed: 06/21/18 14:20> <Denny Bee - Last Filed: 06/21/18 16:38> - Review of Systems Comments:: 06/21/18 13:08 GENERAL/CONSTITUTIONAL: No fever or chills. No weakness. HEAD, EYES, EARS, NOSE AND THROAT: No change in vision. No ear pain or discharge. No sore throat. CARDIOVASCULAR: (+)chest pain, no shortness of breath, no loss of consciousness RESPIRATORY: No cough, wheezing, or hemoptysis. GASTROINTESTINAL: No nausea, vomiting, diarrhea or constipation. GENITOURINARY: No dysuria, frequency, or change in urination. MUSCULOSKELETAL: No joint or muscle swelling or pain. No neck or back pain. SKIN: No rash NEUROLOGIC: No vertigo, no change in strength/sensation. ENDOCRINE: No increased thirst. No abnormal weight change. HEMATOLOGIC/LYMPHATIC: No anemia, easy bleeding, or history of blood clots. ALLERGIC/IMMUNOLOGIC: No hives or skin allergy. (RohitDenny) *Physical Exam <Yue Ventura - Last Filed: 06/21/18 14:20> <Denny Bee - Last Filed: 06/21/18 16:38> - Vital Signs Last Vital Signs Temp Pulse Resp BP Pulse Ox 98.3 F 89 18 138/85 100 06/21/18 12:31 06/21/18 12:31 06/21/18 12:31 06/21/18 12:31 06/21/18 13:01 - Physical Exam Comments: 06/21/18 13:08 "GENERAL: Awake, alert, and fully oriented, in no acute distress. HEAD: No signs of trauma EYES: PERRLA, EOMI, sclera anicteric, conjunctiva clear ENT: Auricles normal inspection, hearing grossly normal, nares patent, oropharynx clear without exudates. Moist mucosa NECK: Nontender, no stepoffs, Normal ROM, supple, no lymphadenopathy, JVD, or masses LUNGS: Breath sounds equal, clear to auscultation bilaterally. No wheezes, and no crackles HEART: Regular rate and rhythm, normal S1 and S2, no murmurs, rubs or gallops ABDOMEN: Soft, nontender, normoactive bowel sounds. No guarding, no rebound. No masses EXTREMITIES: Normal range of motion, no edema. No clubbing or cyanosis. No cords, erythema, or tenderness NEUROLOGICAL: Cranial nerves II through XII intact. 5/5 strength and sensation in all extremities, Normal speech, normal gait, normal cerebellar function SKIN: Warm, Dry, normal turgor, no rashes or lesions noted. (Rohit,Denny) Heart Score/ECG Review <Yue Ventura - Last Filed: 06/21/18 14:20> - History History: Slightly suspicious - Electrocardiogram EKG: Normal - Age Age: 45-65 - Risk Factors Risk Factors Heart Score: Yes Hx Hypercholesterolemia, Yes Hx Hypertension, Yes Hx Diabetes Based on the list above the patient has:: >/=3 risk factors or Hx atherosclerotic disease - Troponin Troponin: </= normal limit - Score Heart Score - Total: 3 <Denny Bee - Last Filed: 06/21/18 16:38> - ECG Impressions Comment:: 06/21/18 13:08 NSR, no LUIS MIGUEL/STDs, no TWIs, axis wnl, intervals wnl, rate 82 (Denny Bee) - Procedure Monitoring Vital Signs: Procedure Monitoring Vital Signs Temperature 98.3 F 06/21/18 12:31 Pulse Rate 89 06/21/18 12:31 Respiratory Rate 18 06/21/18 12:31 Blood Pressure 138/85 06/21/18 12:31 O2 Sat by Pulse Oximetry (%) 100 06/21/18 13:01 ED Treatment Course - LABORATORY CBC & Chemistry Diagram: 06/21/18 13:00 06/21/18 13:00 <Yue Ventura - Last Filed: 06/21/18 14:20> - LABORATORY CBC & Chemistry Diagram: 06/21/18 13:00 06/21/18 13:00 <Denny Bee - Last Filed: 06/21/18 16:38> - ADDITIONAL ORDERS Additional order review: Laboratory Results 06/21/18 06/21/18 06/21/18 15:40 13:00 13:00 Sodium 142 Potassium 4.3 Chloride 110 H Carbon Dioxide 24 Anion Gap 8 BUN 24 H Creatinine 1.0 Creat Clearance w eGFR > 60 Random Glucose 129 H Calcium 8.7 Total Bilirubin 1.3 H AST 22 ALT 39 Alkaline Phosphatase 176 H Creatine Kinase 56 69 Troponin I < 0.02 < 0.02 B-Natriuretic Peptide 76.2 Total Protein 6.8 Albumin 3.7 Lipase 246 06/21/18 13:00 RBC 3.97 L MCV 87.7 MCHC 36.5 H RDW 13.0 MPV 7.2 L Neutrophils % 71.2 Lymphocytes % 17.8 D Monocytes % 7.0 Eosinophils % 3.3 Basophils % 0.7 - RADIOLOGY Radiology Studies Ordered: Category Date Time Status ABDOMEN/PELVIS CTA W/WO CONTR [CT] Stat CT Scan 06/21/18 14:08 Completed CHEST CTA [CT] Stat CT Scan 06/21/18 13:57 Completed CHEST X-RAY PORTABLE* [RAD] Stat Radiology 06/21/18 12:56 Taken - Medications Given in the ED: ED Medications Discontinued Medications Generic Name Dose Route Start Last Admin Trade Name Freq PRN Reason Stop Dose Admin Aspirin 325 mg 06/21/18 12:56 06/21/18 14:02 Asa - PO 06/21/18 12:57 325 mg ONCE ONE Administration Medical Decision Making <Yue Ventura - Last Filed: 06/21/18 14:20> <Denny Bee - Last Filed: 06/21/18 16:38> - Medical Decision Making 06/21/18 13:09 53 M with chest pain. EKG with no ischemic changes. Pt was admitted for similar complaint a few weeks ago and discharged after being cleared by cards. No risk factors or evidence of DVT/PE on exam. - Labs, trop x 2 - CXR 06/21/18 14:16 Labs wnl, trop negative x1 Will obtain CTA to r/o dissection given severity of pain at onset Case discussed with Dr. Marquez, who evaluated pt during prior admission. He agrees with CTA and recommends 2nd trop. If both negative, pt can be DC'ed from cardiology standpoint. 06/21/18 16:36 Trop negative x 2 CT negative for dissection Pt reassessed - feels much better Pt is well appearing, with normal vitals. Clinically stable for DC at this time. I discussed the physical exam findings, ancillary test results and final diagnoses with the patient. I answered all of the patient's questions. The patient was satisfied with the care received and felt comfortable with the discharge plan and treatment plan. The patient agrees to follow up with the primary care physician within 24-72 hours. (Denny Bee) *DC/Admit/Observation/Transfer <Yue Ventura - Last Filed: 06/21/18 14:20> <Denny Bee - Last Filed: 06/21/18 16:38> Diagnosis at time of Disposition: Chest pain - Discharge Dispostion Disposition: HOME - Patient Instructions Printed Discharge Instructions: DI for Atypical Chest Pain Additional Instructions: Follow up with a printing estimator within 1 week for further evaluation of your chest pain. Call the number provided to make an appointment. If you experience any worsening chest pain, shortness of breath, or any other concerning symptoms, return to the ER immediately. Your CT today showed a few nodules in your lungs. These are most likely benign ( harmless), but there is a chance they may represent cancer if they get bigger. Follow up with your primary doctor for a repeat CT scan in 3 months. - Attestations Scribe Attestion: 06/21/18 14:20 Documentation prepared by Yue Ventura, acting as medical affairs specialist for Denny Bee MD. (Yue Ventura) Physician Attestion: 06/21/18 16:38 I, Dr. Denny Bee MD, attest that this document has been prepared under my direction and personally reviewed by me in its entirety. I further attest, that it accurately reflects all work, treatment, procedures and medical decision -making performed by me. (Denny Bee)
[2018-06-21 13:44] LABS: ALBUMIN 3.7 g/dl (3.4-5.0); ALK PHOS 176 U/L (45-117); ANION GAP 8 MMOL/L (8-16); BASO % 0.7 % (0-2.0); BILIRUBIN,TOTAL 1.3 mg/dL (0.2-1); BLOOD UREA NITROGEN 24 mg/dL (7-18); CALCIUM 8.7 mg/dL (8.5-10.1); CHLORIDE 110 mmol/L (98-107); CO2 24 mmol/L (21-32); EOS % 3.3 % (0-4.5); GLUCOSE,RANDOM 129 mg/dL (74-106); HEMATOCRIT 34.9 % (35.4-49); HEMOGLOBIN 12.7 GM/dL (11.7-16.9); LIPASE 246 U/L (73-393); LYMPH % 17.8 % (8-40); MCHC 36.5 g/dl (32.0-35.9); MEAN CELL VOLUME 87.7 fl (80-96); MEAN PLT VOLUME 7.2 fl (7.5-11.1); N-TERMINAL BNP 76.2 pg/ml (5-125); NEUT % 71.2 % (42.8-82.8); PLATELET COUNT 295 K/MM3 (134-434); POTASSIUM 4.3 mmol/L (3.5-5.1); RBC 3.97 M/mm3 (4.00-5.60); SGOT/AST 22 U/L (15-37); SGPT/ALT 39 U/L (13-61); SODIUM 142 mmol/L (136-145); TOT PROT 6.8 g/dl (6.4-8.2); WHITE BLOOD COUNT 9.9 K/mm3 (4.0-10.0)
[2018-06-21] MEDS ORDERED: ASPIRIN 325 MG TABLET ONE (14:02)
[2018-06-21 16:58] VITALS: BP 139/91; PULSE 81
--- NOTE | 2018-06-22 02:33 | EKG ---
Test Reason : Blood Pressure : / mmHG Vent. Rate : 082 BPM Atrial Rate : 082 BPM P-R Int : 158 ms QRS Dur : 098 ms QT Int : 352 ms P-R-T Axes : 060 029 070 degrees QTc Int : 411 ms NORMAL SINUS RHYTHM NORMAL ECG WHEN COMPARED WITH ECG OF 08-JUN-2018 13:22, NO SIGNIFICANT CHANGE WAS FOUND Confirmed by REBECCA ECKERT MD ([id number]) on 06/22/2018 2:33:01 AM Referred By: Confirmed By:REBECCA ECKERT MD
== END 2018-06-21 16:58 | disposition home or self-care (01) ==
LOC: JER 12:11
DX: R07.9 Chest pain, unspecified (principal); Z86.73 Personal history of transient ischemic attack (TIA), and cerebral infarction without residual deficits; I10 Essential (primary) hypertension; E78.5 Hyperlipidemia, unspecified; E11.9 Type 2 diabetes mellitus without complications; Z87.891 Personal history of nicotine dependence
CPT/HCPCS: 36415; 71045-TC-FY; 71275-TC; 74174-TC; 80053; 82550; 83690; 83880; 84484; 85025; 93005; 93010; 99284-25

== ENCOUNTER 2018-07-17 18:49 | Inpatient (IN) | payer OTHER ==
[2018-07-17 19:09] VITALS: BMI 23.6
--- NOTE | 2018-07-17 21:02 | PDOC ---
Attending Attestation - HPI HPI: 07/17/18 22:05 The patient is a 53 year old male, with a significant past medical history of CVA (04/2018 with R sided deficits), HTN, HLD, and DM, who presents to the emergency department with, 2 hours of hematuria. Patient notes his symptoms onset at 8pm with associated dysuria and urinary frequency. He denies any recent fevers, chills, headache or dizziness. He denies any recent nausea, vomit, diarrhea or constipation. He denies any recent chest pain or shortness of breath. Allergies: NKDA - Physicial Exam PE: 07/17/18 22:05 Refer to resident exam. <uMshtaq Modi - Last Filed: 07/17/18 22:05> - Resident Resident Name: Kaylen Malave - ED Attending Attestation I have performed the following: I have examined & evaluated the patient, The case was reviewed & discussed with the resident, I agree w/resident's findings & plan - Medical Decision Making 07/17/18 23:21 53-year-old male with gross hematuria and dysuria times several days. Patient denies abdominal pain Potassium markedly elevated 2 Plan for IV treatment as well as CT scan We will admit to medicine for hyperkalemia, patient will likely require a urology consult <Mgadalena Cohn - Last Filed: 07/17/18 23:25> Attestations - Attestations 07/17/18 22:06 Documentation prepared by Mushtaq Modi, acting as medical management specialist for Magdalena Cohn DO. <Mushtaq Modi - Last Filed: 07/17/18 22:05>
[2018-07-17 21:13] LABS: BASO % 0.4 % (0-2.0); EOS % 2.3 % (0-4.5); HEMATOCRIT 33.6 % (35.4-49); HEMOGLOBIN 12.1 GM/dL (11.7-16.9); LYMPH % 10.6 % (8-40); MCH 31.7 pg (25.7-33.7); MEAN CELL VOLUME 88.1 fl (80-96); MEAN PLT VOLUME 6.9 fl (7.5-11.1); MONO % 5.2 % (3.8-10.2); NEUT % 81.5 % (42.8-82.8); PLATELET COUNT 294 K/MM3 (134-434); RBC 3.82 M/mm3 (4.00-5.60); RDW 13.2 % (11.9-15.9); WHITE BLOOD COUNT 15.9 K/mm3 (4.0-10.0)
--- NOTE | 2018-07-17 21:17 | PDOC ---
History of Present Illness - General Chief Complaint: Hematuria Stated Complaint: HEMATURIA Time Seen by Provider: 07/17/18 20:52 Exam Limitations: Language Barrier - History of Present Illness Initial Comments: 07/17/18 21:13 Pt is a 53yo M with PMH of CVA (04/2018 with R sided deficits), HTN, HLD, DM presenting to ED with hematuria, dysuria that started today. Pt states that he had gross hematuria around 3pm and went to the bathroom around 5 times today. He endorses pain with urination as well. He denies fever, chills, problems with initiating stream, emptying bladder, bloody stools, abdominal pain, n/v/d, chest pain, sob, trauma. PMD: none PMH: see hpi PSH: none Allergies: nkda Social: denies 07/18/18 01:[address] Gonzalez in the past Past History - Past Medical History Allergies/Adverse Reactions: Allergies Allergy/AdvReac Type Severity Reaction Status Date / Time No Known Allergies Allergy Verified 07/17/18 19:07 Home Medications: Ambulatory Orders Aspirin [Aspirin EC] 81 mg PO DAILY 06/08/18 Atorvastatin Ca [Lipitor] 80 mg PO HS 06/08/18 Clopidogrel Bisulfate [Clopidogrel] 75 mg PO DAILY 06/08/18 Glipizide 5 mg PO DAILY 06/08/18 Lisinopril 10 mg PO DAILY 06/08/18 Metformin HCl [Glucophage] 1,000 mg PO BID 06/08/18 CVA: Yes (Residual right sided hemiparesis) COPD: No Diabetes: Yes HTN: Yes Hypercholesterolemia: Yes - Immunization History Immunization Up to Date: Yes - Suicide/Smoking/Psychosocial Hx Smoking History: Never smoked Have you smoked in the past 12 months: No Number of Cigarettes Smoked Daily: 4 Information on smoking cessation initiated: No 'Breaking Loose' booklet given: 06/09/18 Hx Alcohol Use: No Drug/Substance Use Hx: No Review of Systems - Review of Systems Constitutional: No: Chills, Fever, Weakness HEENTM: No: Symptoms Reported Respiratory: No: Cough, Shortness of Breath Cardiac (ROS): No: Chest Pain, Lightheadedness, Palpitations, Syncope ABD/GI: No: Constipated, Diarrhea, Nausea, Rectal Bleeding, Vomiting, Abdominal cramping, Tarry Stools : Yes: Burning, Dysuria, Frequency, Hematuria. No: Flank Pain, Incontinence, Testicular Swelling, Testicular Pain Musculoskeletal: No: Back Pain, Joint Pain, Neck Pain Integumentary: No: Symptoms Reported Neurological: No: Headache, Numbness, Tingling, Tremors *Physical Exam - Vital Signs Last Vital Signs Temp Pulse Resp BP Pulse Ox 98.2 F 97 H 17 136/83 99 07/17/18 19:07 07/17/18 19:07 07/17/18 19:07 07/17/18 19:07 07/17/18 19:07 - Physical Exam General Appearance: Yes: Appropriately Dressed, Thin. No: Apparent Distress HEENT: positive: EOMI, SHANA, Normal ENT Inspection Neck: positive: Trachea midline, Supple. negative: Lymphadenopathy (R), Lymphadenopathy (L) Respiratory/Chest: positive: Lungs Clear, Normal Breath Sounds. negative: Rhonchi, Stridor, Wheezing Cardiovascular: positive: Regular Rhythm, Regular Rate, S1, S2. negative: Edema , JVD, Murmur Vascular Pulses: Carotid (R): 2+, Carotid (L): 2+, Dorsalis-Pedis (R): 2+, Doralis-Pedis (L): 2+ Gastrointestinal/Abdominal: positive: Normal Bowel Sounds, Soft. negative: Distended, Guarding, Rebound, Tenderness Musculoskeletal: negative: CVA Tenderness (R), CVA Tenderness (L) Extremity: positive: Normal Capillary Refill, Pelvis Stable. negative: Pedal Edema, Swelling, Calf Tenderness Integumentary: positive: Normal Color, Dry, Warm Neurologic: positive: sports apparel internship II-XII NML intact, Fully Oriented, Alert, Normal Mood/ Affect, Normal Response. negative: Motor Strength 5/5 (reduced r side strength) Moderate Sedation - Procedure Monitoring Vital Signs: Procedure Monitoring Vital Signs Temperature 98.2 F 07/17/18 19:07 Pulse Rate 97 H 07/17/18 19:07 Respiratory Rate 17 07/17/18 19:07 Blood Pressure 136/83 07/17/18 19:07 O2 Sat by Pulse Oximetry (%) 99 07/17/18 19:07 ED Treatment Course - LABORATORY CBC & Chemistry Diagram: 07/17/18 21:05 07/17/18 22:00 Medical Decision Making - Medical Decision Making 07/17/18 21:17 Pt is a 53yo M with PMH of CVA (04/2018 with R sided deficits), HTN, HLD, DM presenting to ED with hematuria, dysuria that started today. Pt states that he had gross hematuria around 3pm and went to the bathroom around 5 times today. He endorses pain with urination as well. He denies fever, chills, problems with initiating stream, emptying bladder, bloody stools, abdominal pain, n/v/d, chest pain, sob, trauma. Vitals: HR 97 PE: benign ddx includes but not limited to infection, stone, malignancy -cbc, cmp, coags, ua, ucx -iv fluids -ct initial labs significant for K 6.1, will repeat. Giving fluids, ordered ekg. EKG: nsr, no lencho or depressions, possible peakd Tin V2 however similar to prior ekg 06/21/2018. P waves present. QRS 86. QTc 408. T wave flat in aVL. Rpt bmp K 5.8 (prior to fluids) Pt not having chest pain or SOB, not feeling weak. Normal Cr (1.2). No EKG changes CBC shows wbc 15.9. 3+blood with 6300 rbc. Pt not in pain. CT shows cystitis. no masses or stone. slightly enlarged appendix however no signs of appendicitis (no abdominal tenderness, no n/v/d, no fevers). -Ceftriaxone iv. 07/18/18 01:28 Pt signed out to Dr. Castillo. Pending admission 07/18/18 01:29 *DC/Admit/Observation/Transfer Diagnosis at time of Disposition: Cystitis, Hyperkalemia - Discharge Dispostion Decision to Admit order: Yes - Referrals Referrals: Joan Gonzalez MD [Primary Care Provider] - - Patient Instructions - Post Discharge Activity
[2018-07-17 21:28] LABS: URINE APPEARANCE TURBID; URINE BILIRUBIN NEGATIVE (<2.0 mg/dL); URINE COLOR RED; URINE GLUCOSE (UA) NEGATIVE (NEGATIVE); URINE KETONE NEGATIVE (NEGATIVE); URINE LEUK ESTERASE TRACE (NEGATIVE); URINE NITRITE NEGATIVE (NEGATIVE); URINE PROTEIN 3+ (NEGATIVE); URINE UROBILINOGEN NEGATIVE mg/dL (0.2-1.0)
[2018-07-17 21:41] LABS: ALBUMIN 3.7 g/dl (3.4-5.0); ALK PHOS 158 U/L (45-117); ANION GAP 5 MMOL/L (8-16); BILIRUBIN,TOTAL 1.1 mg/dL (0.2-1); BLOOD UREA NITROGEN 22 mg/dL (7-18); CALCIUM 8.7 mg/dL (8.5-10.1); CHLORIDE 104 mmol/L (98-107); CO2 25 mmol/L (21-32); CREATININE 1.2 mg/dL (0.55-1.3); GLUCOSE,RANDOM 200 mg/dL (74-106); SGOT/AST 21 U/L (15-37); SGPT/ALT 36 U/L (13-61); SODIUM 135 mmol/L (136-145); TOT PROT 6.7 g/dl (6.4-8.2)
[2018-07-17 21:42] LABS: POTASSIUM 6.1 mmol/L (3.5-5.1)
[2018-07-17] MEDS ORDERED: SODIUM CHLORIDE 1,000 ML IV STA (21:45)
[2018-07-17 21:50] LABS: INR 0.95 (0.83-1.09); PROTHROMBIN TIME (PATIENT) 11.2 SEC (9.7-13.0)
[2018-07-17 21:52] LABS: ACTIVATED PTT 29.1 SECONDS (25.2-36.5)
[2018-07-17 22:49] LABS: ANION GAP 7 MMOL/L (8-16); BLOOD UREA NITROGEN 21 mg/dL (7-18); CALCIUM 9.2 mg/dL (8.5-10.1); CHLORIDE 105 mmol/L (98-107); CO2 25 mmol/L (21-32); CREATININE 1.2 mg/dL (0.55-1.3); GLUCOSE,RANDOM 189 mg/dL (74-106); POTASSIUM 5.8 mmol/L (3.5-5.1); SODIUM 136 mmol/L (136-145)
[2018-07-18] MEDS ORDERED: CEFTRIAXONE 1 GM in DEXTROSE 5%-WATER - 100 ML IVPB ONE (00:19)
[2018-07-18] MEDS ORDERED: CEFTRIAXONE 1 GM/50 ML BAG ONE (01:16)
--- NOTE | 2018-07-18 01:29 | PDOC ---
*Physical Exam - Vital Signs Last Vital Signs Temp Pulse Resp BP Pulse Ox 98.2 F 97 H 17 136/83 99 07/17/18 19:07 07/17/18 19:07 07/17/18 19:07 07/17/18 19:07 07/17/18 19:07 ED Treatment Course - LABORATORY CBC & Chemistry Diagram: 07/17/18 21:05 07/17/18 22:00 - ADDITIONAL ORDERS Additional order review: Laboratory Results 07/17/18 07/17/18 07/17/18 22:00 21:32 21:05 PT with INR 11.20 INR 0.95 PTT (Actin FS) 29.1 Sodium 136 135 L Potassium 5.8 H 6.1 H* Chloride 105 104 Carbon Dioxide 25 25 Anion Gap 7 L 5 L BUN 21 H 22 H Creatinine 1.2 1.2 Creat Clearance w eGFR 63.33 63.33 Random Glucose 189 H 200 H Calcium 9.2 8.7 Total Bilirubin 1.1 H AST 21 ALT 36 Alkaline Phosphatase 158 H Total Protein 6.7 Albumin 3.7 Urine Color Urine Appearance Urine pH Ur Specific [place] Urine Protein Urine Glucose (UA) Urine Ketones Urine Blood Urine Nitrite Urine Bilirubin Urine Urobilinogen Ur Leukocyte Esterase Urine WBC (Auto) Urine RBC (Auto) 07/17/18 21:05 PT with INR INR PTT (Actin FS) Sodium Potassium Chloride Carbon Dioxide Anion Gap BUN Creatinine Creat Clearance w eGFR Random Glucose Calcium Total Bilirubin AST ALT Alkaline Phosphatase Total Protein Albumin Urine Color Red Urine Appearance Turbid Urine pH 6.0 Ur Specific [place] 1.020 Urine Protein 3+ H Urine Glucose (UA) Negative Urine Ketones Negative Urine Blood 3+ H Urine Nitrite Negative Urine Bilirubin Negative Urine Urobilinogen Negative Ur Leukocyte Esterase Trace Urine WBC (Auto) 16 Urine RBC (Auto) 6349 07/17/18 21:05 RBC 3.82 L MCV 88.1 MCHC 36.0 H RDW 13.2 MPV 6.9 L Neutrophils % 81.5 Lymphocytes % 10.6 D Monocytes % 5.2 Eosinophils % 2.3 Basophils % 0.4 - Medications Given in the ED: ED Medications Discontinued Medications Generic Name Dose Route Start Last Admin Trade Name Freq PRN Reason Stop Dose Admin Sodium Chloride 1,000 mls @ 1,000 mls/hr 07/17/18 21:45 07/17/18 22:13 Normal Saline - IV 07/17/18 22:44 1,000 mls/hr ASDIR STA Administration Medical Decision Making - Medical Decision Making Patient signed out by Dr. Malave 53yo M with PMH of CAD, DM, HTN, CVA with r.sided residual deficits presenting with hematuria, dysuria, and frequency. WBC=15.9 Hyperkalemia 6.1, 5.8 noted without EKG changes UA positive for infection, Rocephin given Imaging without acute kidney pathology Awaiting callback from admission team 07/18/18 01:27 Discussed case with VANNESSA Hyde. Potassium lowering treatment ordered. CXR ordered. Patient admitted to telemetry observation under Dr. Gonzalez. 07/18/18 01:53 *DC/Admit/Observation/Transfer Diagnosis at time of Disposition: Cystitis, Hyperkalemia - Referrals Referrals: Jona Gonzalez MD [Primary Care Provider] - - Patient Instructions - Post Discharge Activity
[2018-07-18] MEDS ORDERED: INSULIN REGULAR HUMAN 100 UNITS/ML *VIAL IVPUSH ONE (01:45)
[2018-07-18] MEDS ORDERED: DEXTROSE 50%-WATER - 25 GM/50 ML VIAL IVPUSH ONE (01:46)
[2018-07-18] MEDS ORDERED: SODIUM POLYSTYRENE SULFONATE 15 GM/60 ML BOTTLE PO ONE (01:46)
[2018-07-18] MEDS ORDERED: SODIUM BICARBONATE 8.4% 50 MEQ/50 ML VIAL IV ONE (01:46)
[2018-07-18] MEDS ORDERED: DEXTROSE 50%-WATER 25 GM/50 ML DISP.SYRIN ONE (02:34)
[2018-07-18] MEDS ORDERED: SODIUM BICARBONATE 8.4% - 50 ML ONE (02:34)
[2018-07-18] MEDS ORDERED: SODIUM POLYSTYRENE SULFONATE 15 GM/60 ML BOTTLE ONE (02:34)
[2018-07-18] MEDS ORDERED: INSULIN REGULAR HUMAN 100 UNITS/ML *VIAL ONE (02:35)
--- NOTE | 2018-07-18 02:45 | HP ---
Admitting History and Physical - Primary Care Physician PCP: Joan Gonzalez - Admission Chief Complaint: Hematuria, Dysuria History of Present Illness: This is a 53 y/o man with a PMHx of: HTN, HLD, CVA (04/18 @ [facility] , with R- residual weakness), DM. Who presents to the ED with hematuria and dysuria since 2pm yesterday. Patient is [place] speaking, [employer] mobile line used # [id number]. Patient reports having bloody urine without clots. Patient denies melena or hematochezia. Patient denies fever, chills, cough, SOB, dizziness, CP , palpitations, N/V/D, constipation. History Source: Patient Limitations to Obtaining History: Language Barrier ([place]) - Past Medical History [employer]: Yes: CVA Cardiovascular: Yes: CAD, HTN, Hyperlipdemia Endocrine: Yes: Diabetes Mellitus - Smoking History Smoking history: Former smoker Have you smoked in the past 12 months: No If you are a former smoker, when did you quit?: 06/2018 - Alcohol/Substance Use Hx Alcohol Use: No History of Substance Use: reports: None - Social History Usual Living Arrangement: Yes: With Parent ADL: Independent (ambulates with a cane) History of Recent Travel: No Home Medications - Allergies Allergies/Adverse Reactions: Allergies Allergy/AdvReac Type Severity Reaction Status Date / Time No Known Allergies Allergy Verified 07/17/18 19:07 - Home Medications Home Medications: Ambulatory Orders Aspirin [Aspirin EC] 81 mg PO DAILY 06/08/18 Atorvastatin Ca [Lipitor] 80 mg PO HS 06/08/18 Clopidogrel Bisulfate [Clopidogrel] 75 mg PO DAILY 06/08/18 Glipizide 5 mg PO DAILY 06/08/18 Lisinopril 10 mg PO DAILY 06/08/18 Metformin HCl [Glucophage] 1,000 mg PO BID 06/08/18 Family Disease History - Family Disease History Family History: Denies Review of Systems - Review of Systems Constitutional: reports: No Symptoms Eyes: reports: No Symptoms HENT: reports: No Symptoms Neck: reports: No Symptoms Cardiovascular: reports: No Symptoms Respiratory: reports: No Symptoms Gastrointestinal: reports: No Symptoms Genitourinary: reports: Dysuria, Hematuria. denies: Flank Pain, Testicular Mass , Testicular Pain, Testicular Swelling, Urgency Breasts: reports: No Symptoms Reported Musculoskeletal: reports: No Symptoms Integumentary: reports: No Symptoms Neurological: reports: No Symptoms Endocrine: reports: No Symptoms Hematology/Lymphatic: reports: No Symptoms Psychiatric: reports: No Symptoms Pain Intensity: 1 Physical Examination Vital Signs: Vital Signs Temperature 98.2 F 07/17/18 19:07 Pulse Rate 97 H 07/17/18 19:07 Respiratory Rate 17 07/17/18 19:07 Blood Pressure 136/83 07/17/18 19:07 O2 Sat by Pulse Oximetry (%) 99 07/17/18 19:07 Constitutional: Yes: Well Nourished, No Distress, Calm Eyes: Yes: WNL, Conjunctiva Clear, EOM Intact, PERRL HENT: Yes: WNL, Atraumatic, Normocephalic Neck: Yes: WNL, Supple, Trachea Midline Cardiovascular: Yes: WNL, Regular Rate and Rhythm, S1, S2 Respiratory: Yes: WNL, Regular, CTA Bilaterally Gastrointestinal: Yes: WNL, Normal Bowel Sounds, Soft. No: Tenderness, Tenderness, Epigastrium, Tenderness, Rebound, Vomiting ...Rectal Exam: No: Deferred Renal/: Yes: WNL Breast(s): Yes: WNL Musculoskeletal: Yes: WNL Extremities: Yes: WNL Edema: No Peripheral Pulses WNL: Yes Neurological: Yes: Alert, Oriented, Cran Nerves II-XII Intact, Weakness (RUE, RLE) ...Motor Strength: LUE (5/5), LLE (5/5), RUE (4/5), RLE (4/5) Psychiatric: Yes: WNL, Alert, Oriented Labs: CBC, BMP 07/17/18 21:05 07/17/18 22:00 Laboratory Results - last 24 hr 07/17/18 07/17/18 07/17/18 21:05 21:05 21:05 WBC 15.9 H RBC 3.82 L Hgb 12.1 Hct 33.6 L MCV 88.1 MCH 31.7 MCHC 36.0 H RDW 13.2 Plt Count 294 MPV 6.9 L Absolute Neuts (auto) 13.0 H Neutrophils % 81.5 Lymphocytes % 10.6 D Monocytes % 5.2 Eosinophils % 2.3 Basophils % 0.4 Nucleated RBC % 0 PT with INR INR PTT (Actin FS) Sodium 135 L Potassium 6.1 H* Chloride 104 Carbon Dioxide 25 Anion Gap 5 L BUN 22 H Creatinine 1.2 Creat Clearance w eGFR 63.33 Random Glucose 200 H Calcium 8.7 Total Bilirubin 1.1 H AST 21 ALT 36 Alkaline Phosphatase 158 H Total Protein 6.7 Albumin 3.7 Urine Color Red Urine Appearance Turbid Urine pH 6.0 Ur Specific [place] 1.020 Urine Protein 3+ H Urine Glucose (UA) Negative Urine Ketones Negative Urine Blood 3+ H Urine Nitrite Negative Urine Bilirubin Negative Urine Urobilinogen Negative Ur Leukocyte Esterase Trace Urine WBC (Auto) 16 Urine RBC (Auto) 6349 07/17/18 07/17/18 21:32 22:00 WBC RBC Hgb Hct MCV MCH MCHC RDW Plt Count MPV Absolute Neuts (auto) Neutrophils % Lymphocytes % Monocytes % Eosinophils % Basophils % Nucleated RBC % PT with INR 11.20 INR 0.95 PTT (Actin FS) 29.1 Sodium 136 Potassium 5.8 H Chloride 105 Carbon Dioxide 25 Anion Gap 7 L BUN 21 H Creatinine 1.2 Creat Clearance w eGFR 63.33 Random Glucose 189 H Calcium 9.2 Total Bilirubin AST ALT Alkaline Phosphatase Total Protein Albumin Urine Color Urine Appearance Urine pH Ur Specific [place] Urine Protein Urine Glucose (UA) Urine Ketones Urine Blood Urine Nitrite Urine Bilirubin Urine Urobilinogen Ur Leukocyte Esterase Urine WBC (Auto) Urine RBC (Auto) Intake & Output 07/15/18 07/16/18 07/17/18 07/18/18 23:59 23:59 23:59 23:59 Weight 72.575 kg Imaging - Results Chest X-ray: Image Reviewed Cat Scan: Report Reviewed, Image Reviewed EKG: Image Reviewed Problem List - Problems (1) Hyperkalemia Code(s): E87.5 - HYPERKALEMIA (2) Cystitis Code(s): N30.90 - CYSTITIS, UNSPECIFIED WITHOUT HEMATURIA (3) Hematuria Code(s): R31.9 - HEMATURIA, UNSPECIFIED (4) CAD (coronary artery disease) Code(s): I25.10 - ATHSCL HEART DISEASE OF [place] CORONARY ARTERY W/O ANG PCTRS (5) HTN (hypertension) Code(s): I10 - ESSENTIAL (PRIMARY) HYPERTENSION (6) CVA (cerebral vascular accident) Code(s): I63.9 - CEREBRAL INFARCTION, UNSPECIFIED (7) HLD (hyperlipidemia) Code(s): E78.5 - HYPERLIPIDEMIA, UNSPECIFIED (8) Diabetes mellitus Code(s): E11.9 - TYPE 2 DIABETES MELLITUS WITHOUT COMPLICATIONS Assessment/Plan This is a 53 y/o man with a PMHx of: HTN, HLD, CVA (R- residual), DM. Placed on Telemetry Observation for Hyperkalemia, Hematuria, Cystitis for further evaluation of their emergent condition. Plan: Will admit to Tele Observation: 1. Cardiovascular: Acute Hyperkalemia CAD Hypertension Hyperlipidemia Hyperkalemia Protocol given in ED Continue cardiac monitoring Appreciate Cardiology consult EKG reviewed NSR no peaked Ts CBC, BMP, Mg, Phos in am Continue Lisinopril, Lipitor Will hold Plavix and Asa for now, secondary to hematuria and defer to Cardiology 2. Urology: Hematuria Cystitis UA- +3 Protein, +3 Blood, trace Leukocyte Esterase, 16 WBCs, 6349 RBCs Urine Culture-pending Abd/Pelvis CT report- no urinary tract stone or obstruction, thickening urinary bladder fowler, partial distention. no bowel obstruction/inflammation, neg diverticulits or colitis. appendix slightly thickened 9.3mm Started on Rocephin in ED, will continue Appreciate Urology consult Consider ID consult if condition worsens WBC 15.9 no L shift, afebrile Monitor CBC, BMP Tylenol prn Monitor vitals 3. Neurology: CVA Hold Asa and Plavix for now secondary to Hematuria Fall Precautions 4. Endocrinology: Diabetes Mellitus stable BGMs ISS Continue Glipizide, Metformin FEN PO fluids as tolerated Replete lytes, monitor K Low Na, Diabetic Diet DVT ppx OOB SCDs Hold AC secondary to Hematuria Code Status: Full Code Dispo: Observation Visit type - Emergency Visit Emergency Visit: Yes ED Registration Date: 07/17/18 Care time: The patient presented to the Emergency Department on the above date and was hospitalized for further evaluation of their emergent condition. - New Patient This patient is new to me today: Yes Date on this admission: 07/18/18 - Critical Care Critical Care patient: No
[2018-07-18 06:04] LABS: BASO % 0.5 % (0-2.0); EOS % 3.6 % (0-4.5); HEMATOCRIT 26.8 % (35.4-49); HEMOGLOBIN 9.9 GM/dL (11.7-16.9); MCHC 36.9 g/dl (32.0-35.9); MEAN CELL VOLUME 86.8 fl (80-96); MEAN PLT VOLUME 6.9 fl (7.5-11.1); MONO % 8.2 % (3.8-10.2); NEUT % 69.7 % (42.8-82.8); PLATELET COUNT 249 K/MM3 (134-434); RBC 3.09 M/mm3 (4.00-5.60); RDW 13.1 % (11.9-15.9); WHITE BLOOD COUNT 9.8 K/mm3 (4.0-10.0)
[2018-07-18 06:34] LABS: ANION GAP 6 MMOL/L (8-16); BLOOD UREA NITROGEN 20 mg/dL (7-18); CALCIUM 8.1 mg/dL (8.5-10.1); CHLORIDE 108 mmol/L (98-107); CO2 25 mmol/L (21-32); CREATININE 0.9 mg/dL (0.55-1.3); GLUCOSE,RANDOM 123 mg/dL (74-106); MAGNESIUM 1.9 mg/dL (1.8-2.4); PHOSPHOROUS 4.2 mg/dL (2.5-4.9); POTASSIUM 4.5 mmol/L (3.5-5.1); SODIUM 139 mmol/L (136-145)
--- NOTE | 2018-07-18 09:28 | CON.CARD ---
Cardiology Consult (text) - Consultation Consultation Note: Consultation Note: cc: hematuria hpi: 53 m hx cva, htn, hld, dm here with hematuria and dysuria starting day prior to admission. No chest pain, palps, dizziness, lightheadedness, edema. Recently admitted for chest pain, echo and nuclear stress unremarkable. Received kayexalate, bicarb for hyperkalemia, abx for UTI. Aspirin and plavix held for hematuria. Feels better today, still has pain with urinating. Denies cardiac history, no VT, stents, was on aspirin and plavix for history of stroke. pmh: per hpi psh: nc social: +cigs fam: no premature cad, scd ros: per hpi; no nvd fever cough vision changes gib hematuria dysuria meds: Ambulatory Orders Aspirin [Aspirin EC] 81 mg PO DAILY 06/08/18 Atorvastatin Ca [Lipitor] 80 mg PO HS 06/08/18 Clopidogrel Bisulfate [Clopidogrel] 75 mg PO DAILY 06/08/18 Glipizide 5 mg PO DAILY 06/08/18 Lisinopril 10 mg PO DAILY 06/08/18 Metformin HCl [Glucophage] 1,000 mg PO BID 06/08/18 pe: Vital Signs Period Temp Pulse Resp BP Sys/[place] Pulse Ox Last 24 Hr 97.6 F-98.2 F 87-97 16-17 125-152/78-101 98-100 nad no jvd rrr s1s2 no mrg cta bl nl eff aaox3 no le e/c/c abd nd nt pos bs no jaundice diaphoresis pos dp pt no carotid bruits Laboratory Last Values WBC 9.8 K/mm3 (4.0-10.0) 07/18/18 05:30 RBC 3.09 M/mm3 (4.00-5.60) L 07/18/18 05:30 Hgb 9.9 GM/dL (11.7-16.9) L 07/18/18 05:30 Hct 26.8 % (35.4-49) L D 07/18/18 05:30 MCV 86.8 fl (80-96) 07/18/18 05:30 MCH 32.0 pg (25.7-33.7) 07/18/18 05:30 MCHC 36.9 g/dl (32.0-35.9) H 07/18/18 05:30 RDW 13.1 % (11.9-15.9) 07/18/18 05:30 Plt Count 249 K/MM3 (134-434) 07/18/18 05:30 MPV 6.9 fl (7.5-11.1) L 07/18/18 05:30 Absolute Neuts (auto) 6.8 K/mm3 (1.5-8.0) 07/18/18 05:30 Neutrophils % 69.7 % (42.8-82.8) 07/18/18 05:30 Lymphocytes % 18.0 % (8-40) D 07/18/18 05:30 Monocytes % 8.2 % (3.8-10.2) 07/18/18 05:30 Eosinophils % 3.6 % (0-4.5) 07/18/18 05:30 Basophils % 0.5 % (0-2.0) 07/18/18 05:30 Nucleated RBC % 0 % (0-0) 07/18/18 05:30 PT with INR 11.20 SEC (9.7-13.0) 07/17/18 21:32 INR 0.95 (0.83-1.09) 07/17/18 21:32 PTT (Actin FS) 29.1 SECONDS (25.2-36.5) 07/17/18 21:32 Sodium 139 mmol/L (136-145) 07/18/18 05:30 Potassium 4.5 mmol/L (3.5-5.1) 07/18/18 05:30 Chloride 108 mmol/L (98-107) H 07/18/18 05:30 Carbon Dioxide 25 mmol/L (21-32) 07/18/18 05:30 Anion Gap 6 MMOL/L (8-16) L 07/18/18 05:30 BUN 20 mg/dL (7-18) H 07/18/18 05:30 Creatinine 0.9 mg/dL (0.55-1.3) 07/18/18 05:30 Creat Clearance w eGFR 88.27 (>60) 07/18/18 05:30 Random Glucose 123 mg/dL (74-106) H 07/18/18 05:30 Calcium 8.1 mg/dL (8.5-10.1) L 07/18/18 05:30 Phosphorus 4.2 mg/dL (2.5-4.9) 07/18/18 05:30 Magnesium 1.9 mg/dL (1.8-2.4) 07/18/18 05:30 Total Bilirubin 1.1 mg/dL (0.2-1) H 07/17/18 21:05 AST 21 U/L (15-37) 07/17/18 21:05 ALT 36 U/L (13-61) 07/17/18 21:05 Alkaline Phosphatase 158 U/L (45-117) H 07/17/18 21:05 Creatine Kinase 73 U/L (26-308) 07/18/18 05:30 Troponin I < 0.02 ng/ml (0.00-0.05) 07/18/18 05:30 Total Protein 6.7 g/dl (6.4-8.2) 07/17/18 21:05 Albumin 3.7 g/dl (3.4-5.0) 07/17/18 21:05 Urine Color Red 07/17/18 21:05 Urine Appearance Turbid 07/17/18 21:05 Urine pH 6.0 (5.0-8.0) 07/17/18 21:05 Ur Specific [place] 1.020 (1.010-1.035) 07/17/18 21:05 Urine Protein 3+ (NEGATIVE) H 07/17/18 21:05 Urine Glucose (UA) Negative (NEGATIVE) 07/17/18 21:05 Urine Ketones Negative (NEGATIVE) 07/17/18 21:05 Urine Blood 3+ (NEGATIVE) H 07/17/18 21:05 Urine Nitrite Negative (NEGATIVE) 07/17/18 21:05 Urine Bilirubin Negative (<2.0 mg/dL) 07/17/18 21:05 Urine Urobilinogen Negative mg/dL (0.2-1.0) 07/17/18 21:05 Ur Leukocyte Esterase Trace (NEGATIVE) 07/17/18 21:05 Urine WBC (Auto) 16 /hpf (3-5) 07/17/18 21:05 Urine RBC (Auto) 6349 /hpf (0-3) 07/17/18 21:05 cxr: clear lungs ecg: sr, nl intervals no ischemic changes echo 06/2018: mild lvh, nl lv/rv, no sig valve path, mild ao root dil mibi 06/2018 no ischemia, EF 51% a/p: 53 m hx cva, htn, hld, dm here with hematuria hematuria, cystitis, anemia - holding aspirin and plavix - was on DAPT for stroke history, per patient and family member has no stents or other cardiac history and recent echo and stress unremarkable - on abx per primary hyperkalemia - improved - EKG stable compared to prior - was on lisnopril at home - holding hx CVA - holding aspirin and plavix in setting of hematuria - cont statin HLD - cont statin HTN - holding lisinopril in setting of hyperkalemia
--- NOTE | 2018-07-18 09:35 | PN ---
Progress Note, Physician - Current Medication List Current Medications: Active Medications Ceftriaxone Sodium 1 gm/ (Dextrose) 50 mls @ 100 mls/hr IVPB DAILY SEE; Protocol - Objective Vital Signs: Vital Signs Temperature 97.6 F 07/18/18 06:41 Pulse Rate 89 07/18/18 06:41 Respiratory Rate 16 07/18/18 06:41 Blood Pressure 152/101 H 07/18/18 06:41 O2 Sat by Pulse Oximetry (%) 98 07/18/18 06:41 Cardiovascular: Yes: Regular Rate and Rhythm Respiratory: Yes: Regular, CTA Bilaterally Gastrointestinal: Yes: Normal Bowel Sounds, Soft. No: Tenderness Labs: CBC, BMP 07/18/18 05:30 07/18/18 05:30 INR, PTT INR 0.95 (0.83-1.09) 07/17/18 21:32 Problem List - Problems (1) CAD (coronary artery disease) Assessment/Plan: Will admit to Tele Observation: Continue cardiac monitoring Cardiology consult EKG reviewed NSR no peaked Ts CBC, BMP, Mg, Phos Continue Lisinopril, Lipitor Will hold Plavix and Asa for now, secondary to hematuria and defer to Cardiology Code(s): I25.10 - ATHSCL HEART DISEASE OF [place] CORONARY ARTERY W/O ANG PCTRS (2) CVA (cerebral vascular accident) Assessment/Plan: . Hold Asa and Plavix for now secondary to Hematuria Fall Precautions Code(s): I63.9 - CEREBRAL INFARCTION, UNSPECIFIED (3) Cystitis Code(s): N30.90 - CYSTITIS, UNSPECIFIED WITHOUT HEMATURIA (4) Diabetes mellitus Assessment/Plan: stable BGMs ISS Continue Glipizide, Metformin Code(s): E11.9 - TYPE 2 DIABETES MELLITUS WITHOUT COMPLICATIONS (5) Hematuria Assessment/Plan: UA- +3 Protein, +3 Blood, trace Leukocyte Esterase, 16 WBCs, 6349 RBCs Urine Culture-pending Abd/Pelvis CT report- no urinary tract stone or obstruction, thickening urinary bladder fowler, partial distention. no bowel obstruction/inflammation, neg diverticulits or colitis. appendix slightly thickened 9.3mm Started on Rocephin in ED, will continue Urology consult WBC 15.9 no L shift, afebrile Monitor CBC, BMP Tylenol prn Monitor vitals Code(s): R31.9 - HEMATURIA, UNSPECIFIED (6) Hyperkalemia Assessment/Plan: treated in er monitor Code(s): E87.5 - HYPERKALEMIA
--- NOTE | 2018-07-18 10:42 | EKG ---
Test Reason : Blood Pressure : / mmHG Vent. Rate : 091 BPM Atrial Rate : 091 BPM P-R Int : 152 ms QRS Dur : 086 ms QT Int : 332 ms P-R-T Axes : 045 -02 046 degrees QTc Int : 408 ms NORMAL SINUS RHYTHM NORMAL ECG WHEN COMPARED WITH ECG OF 21-JUN-2018 12:38, NO SIGNIFICANT CHANGE WAS FOUND Confirmed by Isai De Oliveira MD ([id number]) on 07/18/2018 10:41:49 AM Referred By: Confirmed By:Isai De Oliveiar MD
--- NOTE | 2018-07-18 18:54 | CONS ---
DATE OF CONSULTATION: 07/18/2018 HISTORY OF PRESENT ILLNESS: The patient is a 53-year-old male admitted yesterday. At the time of admission, the patient apparently was complaining of grossly blood urine as well as discomfort in the lower abdomen and burning and discomfort urinating. Patient reports that prior to this admission he did not have any difficulty voiding, did not have any problem with hematuria or previous urinary tract infections. There is no history of any stones in the patient nor the family as best can be determined. Patient was also admitted to the telemetry unit, as he did have a cardiac history, and patient has been on aspirin and Plavix at home. PHYSICAL EXAMINATION: On examination, patient exhibited no flank pain. There were no palpable abdominal masses. Genitalia were normal. The bladder was not palpably distended. When I saw the patient, he was voiding grossly clear urine and was no longer having any pain or discomfort. Upon admission, patient did have a CAT scan done which showed no upper tract or ureteral masses nor any hydronephrosis nor were any calculi noted. Patient was reported to have a somewhat thickened bladder, but in fact the bladder was _not distended, and this I would say upon review is rather nonspecific. There were no discrete masses in the bladder. Findings were however consistent with possible cystitis, as was noted by the radiologist as well. The patient did have a urine culture and the results are pending but was started on ceftriaxone and reports that within a 12-hour period the pain subsided, and his urine cleared. Patient's hematuria is more than likely related to hemorrhagic cystitis, possibly exacerbated by the aspirin and Plavix he might have been taking. At the present time, there does not seem to be any need for any acute intervention. Patient should be maintained on the ceftriaxone until his urine culture comes back. If the urine culture comes back negative, I would then plan on more immediate further evaluation including cystoscopy. However, if the urine culture is positive, then he should complete at least 7 days of antibiotics and can be further evaluated as an outpatient. I would anticipate doing a repeat urine on him after completing the course of antibiotics, assuming there is an infection as the cause for the hematuria. If the urine completely clears, it may not be necessary for him to undergo cystoscopy. If however red cells persist or in fact there was no documented infection, then cystoscopy will certainly be necessary. MD OSCAR KELLY/[id number]
[2018-07-18] MEDS: ATORVASTATIN CA 80 MG TABLET (FP) PO SCH (21:13)
[2018-07-18] MEDS: INSULIN SLIDING SCALE (NOVOLOG) 1 VIAL SQ SCH (21:13)
--- NOTE | 2018-07-18 22:29 | CONSULT ---
Consult Consult Specialty:: endocrine Referred by:: dr.iyad srinivasan Reason for Consultation:: dm type 2 - History of Present Illness Chief Complaint: high sugars History of Present Illness: 53 y/o man with a PMHx DM 2, HTN, HLD, CVA Who presents to the ED with hematuria,weakness lethargy,high sugars,polyuria,increased thirst,weakness,and ligh headed.denies nausea and vomiting. - Past Medical History [employer]MI[employer]: Yes: CVA Cardio/Vascular: Yes: CAD, HTN, Hyperlipdemia Endocrine: Yes: Diabetes Mellitus - Alcohol/Substance Use Hx Alcohol Use: Yes History of Substance Use: reports: None - Smoking History Smoking history: Former smoker Have you smoked in the past 12 months: No Aproximately how many cigarettes per day: 0 If you are a former smoker, when did you quit?: 06/2018 - Social History ADL: Independent (ambulates with a cane) History of Recent Travel: No Home Medications - Allergies Allergies/Adverse Reactions: Allergies Allergy/AdvReac Type Severity Reaction Status Date / Time No Known Allergies Allergy Verified 07/17/18 19:07 - Home Medications Home Medications: Ambulatory Orders Aspirin [Aspirin EC] 81 mg PO DAILY 06/08/18 Atorvastatin Ca [Lipitor] 80 mg PO HS 06/08/18 Clopidogrel Bisulfate [Clopidogrel] 75 mg PO DAILY 06/08/18 Glipizide 5 mg PO DAILY 06/08/18 Lisinopril 10 mg PO DAILY 06/08/18 Metformin HCl [Glucophage] 1,000 mg PO BID 06/08/18 Review of Systems - Review of Systems Constitutional: reports: Lethargy, Weakness Eyes: reports: No Symptoms HENT: reports: No Symptoms Neck: reports: No Symptoms Cardiovascular: reports: Shortness of Breath Respiratory: reports: Exercise Intolerance, SOB on Exertion Gastrointestinal: reports: Bloating Genitourinary: reports: No Symptoms Breasts: reports: No Symptoms Reported Musculoskeletal: reports: No Symptoms Neurological: reports: Unsteady Gait, Weakness Physical Exam Vital Signs: Vital Signs Temperature 98.0 F 07/18/18 18:00 Pulse Rate 89 07/18/18 18:00 Respiratory Rate 18 07/18/18 18:00 Blood Pressure 122/80 07/18/18 18:00 O2 Sat by Pulse Oximetry (%) 99 07/18/18 14:00 Constitutional: Yes: Calm Eyes: Yes: EOM Intact HENT: Yes: Normocephalic Neck: Yes: Trachea Midline Cardiovascular: Yes: Regular Rate and Rhythm Respiratory: Yes: CTA Bilaterally Gastrointestinal: Yes: Normal Bowel Sounds ...Rectal Exam: Yes: Deferred Musculoskeletal: Yes: WNL Extremities: Yes: WNL Edema: No Neurological: Yes: Alert, Oriented Psychiatric: Yes: Alert Labs: CBC, BMP 07/18/18 05:30 07/18/18 05:30 Problem List - Problems (1) CAD (coronary artery disease) Code(s): I25.10 - ATHSCL HEART DISEASE OF [place] CORONARY ARTERY W/O ANG PCTRS (2) CVA (cerebral vascular accident) Code(s): I63.9 - CEREBRAL INFARCTION, UNSPECIFIED (3) Cystitis Code(s): N30.90 - CYSTITIS, UNSPECIFIED WITHOUT HEMATURIA (4) Diabetes mellitus Code(s): E11.9 - TYPE 2 DIABETES MELLITUS WITHOUT COMPLICATIONS (5) HLD (hyperlipidemia) Code(s): E78.5 - HYPERLIPIDEMIA, UNSPECIFIED (6) HTN (hypertension) Code(s): I10 - ESSENTIAL (PRIMARY) HYPERTENSION (7) Hematuria Code(s): R31.9 - HEMATURIA, UNSPECIFIED Assessment/Plan Current Active Problems diabetes mellitus hyperglycemia/neuropathy CAD (coronary artery disease) (Acute) CVA (cerebral vascular accident) (Acute) Cystitis (Acute) Diabetes mellitus (Acute) HLD (hyperlipidemia) (Acute) HTN (hypertension) (Acute) Hematuria (Acute) Hyperkalemia (Acute) Abnormal Lab Results 07/17/18 07/18/18 07/18/18 22:00 05:30 05:30 RBC 3.09 L Hgb 9.9 L Hct 26.8 L D MCHC 36.9 H MPV 6.9 L Potassium 5.8 H Chloride 108 H Anion Gap 7 L 6 L BUN 21 H 20 H Random Glucose 189 H 123 H Calcium 8.1 L Laboratory Results - last 24 hr 07/17/18 07/18/18 07/18/18 22:00 05:30 05:30 WBC 9.8 RBC 3.09 L Hgb 9.9 L Hct 26.8 L D MCV 86.8 MCH 32.0 MCHC 36.9 H RDW 13.1 Plt Count 249 MPV 6.9 L Absolute Neuts (auto) 6.8 Neutrophils % 69.7 Lymphocytes % 18.0 D Monocytes % 8.2 Eosinophils % 3.6 Basophils % 0.5 Nucleated RBC % 0 Sodium 136 139 Potassium 5.8 H 4.5 Chloride 105 108 H Carbon Dioxide 25 25 Anion Gap 7 L 6 L BUN 21 H 20 H Creatinine 1.2 0.9 Creat Clearance w eGFR 63.33 88.27 POC Glucometer Random Glucose 189 H 123 H Calcium 9.2 8.1 L Phosphorus 4.2 Magnesium 1.9 Creatine Kinase 73 Troponin I < 0.02 07/18/18 21:12 WBC RBC Hgb Hct MCV MCH MCHC RDW Plt Count MPV Absolute Neuts (auto) Neutrophils % Lymphocytes % Monocytes % Eosinophils % Basophils % Nucleated RBC % Sodium Potassium Chloride Carbon Dioxide Anion Gap BUN Creatinine Creat Clearance w eGFR POC Glucometer 207 Random Glucose Calcium Phosphorus Magnesium Creatine Kinase Troponin I plan: bgm qid novolog insulin doses once diet improves start levemir 10 units am will await dose requirement
[2018-07-19] MEDS: INSULIN SLIDING SCALE (NOVOLOG) 1 VIAL SQ SCH ×4 (06:34→21:13)
[2018-07-19] MEDS ORDERED: cefTRIAXone SODIUM 1 GM VIAL ONE (09:44)
[2018-07-19] MEDS ORDERED: DEXTROSE 5%-WATER - 50 ML IVPB ONE (09:44)
[2018-07-19] MEDS ORDERED: CEFTRIAXONE 1 GM in DEXTROSE 5%-WATER - 50 ML IVPB SCH (10:00)
[2018-07-19] MEDS ORDERED: ACETAMINOPHEN 325 MG TABLET (FP) PO PRN (11:47)
--- NOTE | 2018-07-19 11:48 | PN ---
Progress Note, Physician Chief Complaint: Hematuria Cystitis Diabetes Mellitus type 2 Anemia History of Present Illness: NAD UC negative Seen by Urology hematuria resolved - Current Medication List Current Medications: Active Medications Acetaminophen (Tylenol -) 650 mg PO Q4H PRN PRN Reason: PAIN OR FEVER Atorvastatin Calcium (Lipitor -) 80 mg PO HS SEE Last Admin: 07/18/18 21:13 Dose: 80 mg Ceftriaxone Sodium 1 gm/ (Dextrose) 50 mls @ 100 mls/hr IVPB DAILY [facility]; Protocol Last Admin: 07/19/18 10:55 Dose: 100 mls/hr Insulin Aspart (Novolog Vial Sliding Scale -) 1 vial SQ ACHS [facility]; Protocol Last Admin: 07/19/18 06:34 Dose: Not Given - Objective Vital Signs: Vital Signs Temperature 98.4 F 07/19/18 09:07 Pulse Rate 82 07/19/18 09:07 Respiratory Rate 18 07/19/18 09:07 Blood Pressure 126/82 07/19/18 09:07 O2 Sat by Pulse Oximetry (%) 98 07/18/18 20:00 Constitutional: Yes: Well Nourished, No Distress, Calm Cardiovascular: Yes: Regular Rate and Rhythm Respiratory: Yes: Regular Gastrointestinal: Yes: Normal Bowel Sounds, Soft Genitourinary: Yes: WNL Musculoskeletal: Yes: WNL Extremities: Yes: WNL Edema: No Peripheral Pulses WNL: Yes Neurological: Yes: Alert, Oriented Psychiatric: Yes: Alert, Oriented Labs: CBC, BMP 07/18/18 05:30 07/18/18 05:30 INR, PTT INR 0.95 (0.83-1.09) 07/17/18 21:32 Problem List - Problems (1) CAD (coronary artery disease) Assessment/Plan: -Seen by Cardiology -ASA -Plavix -recent echo and stress unremarkable Code(s): I25.10 - ATHSCL HEART DISEASE OF [place] CORONARY ARTERY W/O ANG PCTRS (2) Diabetes mellitus Assessment/Plan: -BGM AC HS -Diabetic low sodium diet -Last A1c at 9.6 -Insulin: Levemir+ Novolog Code(s): E11.9 - TYPE 2 DIABETES MELLITUS WITHOUT COMPLICATIONS (3) Hematuria Assessment/Plan: -resolved -Seen by Urology -F/U outpatient Code(s): R31.9 - HEMATURIA, UNSPECIFIED Assessment/Plan see problem list
--- NOTE | 2018-07-19 11:54 | PN ---
Progress Note (short form) - Note Progress Note: s: no chest pain, dyspnea, palps, edema Current Medications Acetaminophen (Tylenol -) 650 mg PO Q4H PRN PRN Reason: PAIN OR FEVER Atorvastatin Calcium (Lipitor -) 80 mg PO HS [facility] Last Admin: 07/18/18 21:13 Dose: 80 mg Ceftriaxone Sodium 1 gm/ (Dextrose) 50 mls @ 100 mls/hr IVPB DAILY [facility]; Protocol Last Admin: 07/19/18 10:55 Dose: 100 mls/hr Insulin Aspart (Novolog Vial Sliding Scale -) 1 vial SQ ACHS [facility]; Protocol Last Admin: 07/19/18 06:34 Dose: Not Given pe: Vital Signs Period Temp Pulse Resp BP Sys/Londono Pulse Ox Last 24 Hr 97.7 F-99 F 77-97 16-20 122-155/80-95 98-99 nad no jvd rrr s1s2 no mrg cta bl nl eff aaox3 no le e/c/c abd nd nt pos bs no jaundice diaphoresis pos dp pt no carotid bruits cxr: clear lungs ecg: sr, nl intervals no ischemic changes echo 06/2018: mild lvh, nl lv/rv, no sig valve path, mild ao root dil mibi 06/2018 no ischemia, EF 51% a/p: 53 m hx cva, htn, hld, dm here with hematuria, cystitis hematuria, cystitis, anemia - holding aspirin and plavix - was on DAPT for stroke history, per patient and family member has no stents or other cardiac history and recent echo and stress unremarkable - on abx per primary hyperkalemia - improved - EKG stable compared to prior - was on lisnopril at home - holding - no events on tele - dc tele hx CVA - holding aspirin and plavix in setting of hematuria, anemia - cont statin HLD - cont statin HTN - holding lisinopril in setting of hyperkalemia, bp stable
[2018-07-19 13:02] LABS: BASO % 0.7 % (0-2.0); EOS % 3.9 % (0-4.5); HEMATOCRIT 32.4 % (35.4-49); LYMPH % 17.8 % (8-40); MCHC 36.9 g/dl (32.0-35.9); MEAN CELL VOLUME 89.5 fl (80-96); MEAN PLT VOLUME 6.9 fl (7.5-11.1); MONO % 6.3 % (3.8-10.2); NEUT % 71.3 % (42.8-82.8); PLATELET COUNT 297 K/MM3 (134-434); RBC 3.62 M/mm3 (4.00-5.60); WHITE BLOOD COUNT 8.6 K/mm3 (4.0-10.0)
[2018-07-19 13:29] LABS: ALBUMIN 3.4 g/dl (3.4-5.0); ALK PHOS 126 U/L (45-117); ANION GAP 4 MMOL/L (8-16); BILIRUBIN,TOTAL 1.1 mg/dL (0.2-1); BLOOD UREA NITROGEN 19 mg/dL (7-18); CALCIUM 8.7 mg/dL (8.5-10.1); CHLORIDE 106 mmol/L (98-107); CO2 28 mmol/L (21-32); CREATININE 0.9 mg/dL (0.55-1.3); GLUCOSE,RANDOM 209 mg/dL (74-106); POTASSIUM 4.5 mmol/L (3.5-5.1); SGOT/AST 18 U/L (15-37); SGPT/ALT 36 U/L (13-61); SODIUM 138 mmol/L (136-145); TOT PROT 6.5 g/dl (6.4-8.2)
--- NOTE | 2018-07-19 14:12 | PN ---
Progress Note (short form) - Note Progress Note: ID consult dictated imp/reccd Hematuria urine culture obtained before antibiotics is negative reports he is not sexually active will send urine gc/chlamydia NAAT d/c rocephin ?malignancy urology followup please call back if needed Problem List - Problems (1) Hematuria Code(s): R31.9 - HEMATURIA, UNSPECIFIED (2) CVA (cerebral vascular accident) Code(s): I63.9 - CEREBRAL INFARCTION, UNSPECIFIED (3) Diabetes mellitus Code(s): E11.9 - TYPE 2 DIABETES MELLITUS WITHOUT COMPLICATIONS
[2018-07-19] MEDS: ATORVASTATIN CA 80 MG TABLET (FP) PO SCH (21:13)
[2018-07-20] MEDS: INSULIN SLIDING SCALE (NOVOLOG) 1 VIAL SQ SCH ×2 (06:02→12:37)
[2018-07-20 07:49] LABS: BASO % 0.7 % (0-2.0); EOS % 4.2 % (0-4.5); HEMATOCRIT 34.5 % (35.4-49); HEMOGLOBIN 12.4 GM/dL (11.7-16.9); LYMPH % 24.5 % (8-40); MCH 31.7 pg (25.7-33.7); MCHC 35.8 g/dl (32.0-35.9); MEAN CELL VOLUME 88.4 fl (80-96); MEAN PLT VOLUME 7.1 fl (7.5-11.1); MONO % 6.7 % (3.8-10.2); NEUT % 63.9 % (42.8-82.8); PLATELET COUNT 314 K/MM3 (134-434); RDW 13.1 % (11.9-15.9); WHITE BLOOD COUNT 9.9 K/mm3 (4.0-10.0)
[2018-07-20 08:05] LABS: ALBUMIN 3.7 g/dl (3.4-5.0); ALK PHOS 134 U/L (45-117); ANION GAP 6 MMOL/L (8-16); BILIRUBIN,TOTAL 1.3 mg/dL (0.2-1); BLOOD UREA NITROGEN 26 mg/dL (7-18); CALCIUM 9.2 mg/dL (8.5-10.1); CHLORIDE 106 mmol/L (98-107); CO2 27 mmol/L (21-32); GLUCOSE,RANDOM 135 mg/dL (74-106); POTASSIUM 4.4 mmol/L (3.5-5.1); SGOT/AST 18 U/L (15-37); SGPT/ALT 34 U/L (13-61); SODIUM 138 mmol/L (136-145); TOT PROT 7.1 g/dl (6.4-8.2)
--- NOTE | 2018-07-20 10:37 | PN ---
Progress Note (short form) - Note Progress Note: s: no chest pain, dyspnea, palps, edema Current Medications Generic Name Dose Route Start Last Admin Trade Name Freq PRN Reason Stop Dose Admin Acetaminophen 650 mg 07/19/18 11:47 Tylenol - PO Q4H PRN FEVER Atorvastatin Calcium 80 mg 07/18/18 22:00 07/19/18 21:13 Lipitor - PO 80 mg HS SEE Administration Insulin Aspart 1 vial 07/18/18 22:00 07/20/18 06:02 Novolog Vial Sliding Scale - SQ Not Given ACHS SEE Protocol Vital Signs Period Temp Pulse Resp BP Sys/Londono Pulse Ox Last 24 Hr 98 F-98.9 F 79-84 18-18 136-155/74-95 98 nad no jvd rrr s1s2 no mrg cta bl nl eff aaox3 no le e/c/c abd nd nt pos bs no jaundice diaphoresis CBC, BMP 07/20/18 06:48 07/20/18 06:48 cxr: clear lungs ecg: sr, nl intervals no ischemic changes echo 06/2018: mild lvh, nl lv/rv, no sig valve path, mild ao root dil mibi 06/2018 no ischemia, EF 51% tele: sr a/p: 53 m hx cva, htn, hld, dm here with hematuria, cystitis hematuria, cystitis, anemia - holding aspirin and plavix - was on DAPT for stroke history, per patient and family member has no stents or other cardiac history and recent echo and stress unremarkable - on abx per primary hyperkalemia - improved - EKG stable compared to prior - was on lisnopril at home - holding - no events on tele - dc tele hx CVA - holding aspirin and plavix in setting of hematuria, anemia - cont statin HLD - cont statin HTN - holding lisinopril in setting of hyperkalemia, bp elevated now, will start norvasc 5
[2018-07-20] MEDS ORDERED: amLODIPine BESYLATE 5 MG TABLET (FP) PO SCH (10:45)
--- NOTE | 2018-07-20 13:19 | DS ---
Physical Examination Vital Signs: Vital Signs Temperature 98.2 F 07/20/18 06:00 Pulse Rate 84 07/20/18 06:00 Respiratory Rate 18 07/20/18 06:00 Blood Pressure 143/74 07/20/18 06:00 O2 Sat by Pulse Oximetry (%) 98 07/19/18 21:00 Findings/Remarks: This is a 53 y/o man with a PMHx of: HTN, HLD, CVA (04/18 @ [facility] , with R- residual weakness), DM. Who presents to the ED with hematuria and dysuria since 2pm yesterday. Patient is Kiswahili speaking, [employer] line used # [id number]. Patient reports having bloody urine without clots. Patient denies melena or hematochezia. Patient denies fever, chills, cough, SOB, dizziness, CP , palpitations, N/V/D, constipation. Constitutional: Yes: Well Nourished, No Distress, Calm Cardiovascular: Yes: Regular Rate and Rhythm Respiratory: Yes: Regular Gastrointestinal: Yes: Normal Bowel Sounds, Soft Musculoskeletal: Yes: WNL Extremities: Yes: WNL Edema: No Peripheral Pulses WNL: Yes Neurological: Yes: Alert, Oriented Psychiatric: Yes: Alert, Oriented Labs: CBC, BMP 07/20/18 06:48 07/20/18 06:48 Discharge Summary Reason For Visit: CYSTITIS HYPERKALEMIA Current Active Problems CAD (coronary artery disease) (Acute) CVA (cerebral vascular accident) (Acute) Cystitis (Acute) Diabetes mellitus (Acute) HLD (hyperlipidemia) (Acute) HTN (hypertension) (Acute) Hematuria (Acute) Hyperkalemia (Acute) Hospital Course: Laboratory Last Values WBC 9.9 K/mm3 (4.0-10.0) 07/20/18 06:48 RBC 3.90 M/mm3 (4.00-5.60) L 07/20/18 06:48 Hgb 12.4 GM/dL (11.7-16.9) 07/20/18 06:48 Hct 34.5 % (35.4-49) L 07/20/18 06:48 MCV 88.4 fl (80-96) 07/20/18 06:48 MCH 31.7 pg (25.7-33.7) 07/20/18 06:48 MCHC 35.8 g/dl (32.0-35.9) 07/20/18 06:48 RDW 13.1 % (11.9-15.9) 07/20/18 06:48 Plt Count 314 K/MM3 (134-434) 07/20/18 06:48 MPV 7.1 fl (7.5-11.1) L 07/20/18 06:48 Absolute Neuts (auto) 6.3 K/mm3 (1.5-8.0) 07/20/18 06:48 Neutrophils % 63.9 % (42.8-82.8) 07/20/18 06:48 Lymphocytes % 24.5 % (8-40) D 07/20/18 06:48 Monocytes % 6.7 % (3.8-10.2) 07/20/18 06:48 Eosinophils % 4.2 % (0-4.5) 07/20/18 06:48 Basophils % 0.7 % (0-2.0) 07/20/18 06:48 Nucleated RBC % 0 % (0-0) 07/20/18 06:48 PT with INR 11.20 SEC (9.7-13.0) 07/17/18 21:32 INR 0.95 (0.83-1.09) 07/17/18 21:32 PTT (Actin FS) 29.1 SECONDS (25.2-36.5) 07/17/18 21:32 Sodium 138 mmol/L (136-145) 07/20/18 06:48 Potassium 4.4 mmol/L (3.5-5.1) 07/20/18 06:48 Chloride 106 mmol/L (98-107) 07/20/18 06:48 Carbon Dioxide 27 mmol/L (21-32) 07/20/18 06:48 Anion Gap 6 MMOL/L (8-16) L 07/20/18 06:48 BUN 26 mg/dL (7-18) H 07/20/18 06:48 Creatinine 1.0 mg/dL (0.55-1.3) 07/20/18 06:48 Creat Clearance w eGFR 78.16 (>60) 07/20/18 06:48 POC Glucometer 175 UNITS (80-120) 07/20/18 11:58 Random Glucose 135 mg/dL (74-106) H 07/20/18 06:48 Calcium 9.2 mg/dL (8.5-10.1) 07/20/18 06:48 Phosphorus 4.2 mg/dL (2.5-4.9) 07/18/18 05:30 Magnesium 1.9 mg/dL (1.8-2.4) 07/18/18 05:30 Total Bilirubin 1.3 mg/dL (0.2-1) H 07/20/18 06:48 AST 18 U/L (15-37) 07/20/18 06:48 ALT 34 U/L (13-61) 07/20/18 06:48 Alkaline Phosphatase 134 U/L (45-117) H 07/20/18 06:48 Creatine Kinase 73 U/L (26-308) 07/18/18 05:30 Troponin I < 0.02 ng/ml (0.00-0.05) 07/18/18 05:30 Total Protein 7.1 g/dl (6.4-8.2) 07/20/18 06:48 Albumin 3.7 g/dl (3.4-5.0) 07/20/18 06:48 Urine Color Red 07/17/18 21:05 Urine Appearance Turbid 07/17/18 21:05 Urine pH 6.0 (5.0-8.0) 07/17/18 21:05 Ur Specific [place] 1.020 (1.010-1.035) 07/17/18 21:05 Urine Protein 3+ (NEGATIVE) H 07/17/18 21:05 Urine Glucose (UA) Negative (NEGATIVE) 07/17/18 21:05 Urine Ketones Negative (NEGATIVE) 07/17/18 21:05 Urine Blood 3+ (NEGATIVE) H 07/17/18 21:05 Urine Nitrite Negative (NEGATIVE) 07/17/18 21:05 Urine Bilirubin Negative (<2.0 mg/dL) 07/17/18 21:05 Urine Urobilinogen Negative mg/dL (0.2-1.0) 07/17/18 21:05 Ur Leukocyte Esterase Trace (NEGATIVE) 07/17/18 21:05 Urine WBC (Auto) 16 /hpf (3-5) 07/17/18 21:05 Urine RBC (Auto) 6349 /hpf (0-3) 07/17/18 21:05 Microbiology 07/17/18 21:05 Urine - Urine Clean Catch Urine Culture - Final NO GROWTH OBTAINED Vital Signs Temp 98.2 F 07/20/18 06:00 Pulse 84 07/20/18 06:00 Resp 18 07/20/18 06:00 BP 143/74 07/20/18 06:00 Pulse Ox 98 07/19/18 21:00 Intake & Output 07/19/18 07/20/18 07/20/18 23:59 11:59 23:59 Intake Total 1010 260 Balance 1010 260 Intake: IV 10 10 SALINE LOCK 10 10 IVPB 50 Oral 950 250 Other: Voiding Method Urinal Toilet # Unmeasured Voids Void 2 2 Bowel Movement No No Condition: Stable - Instructions Diet, Activity, Other Instructions: Follow up with Urology outpatient. Referrals: Aaron Wolf MD [Staff Physician] - Disposition: HOME - Home Medications Comprehensive Discharge Medication List: Ambulatory Orders Aspirin [Aspirin EC] 81 mg PO DAILY 06/08/18 Atorvastatin Ca [Lipitor] 80 mg PO HS 06/08/18 Clopidogrel Bisulfate [Clopidogrel] 75 mg PO DAILY 06/08/18 Glipizide 5 mg PO DAILY 06/08/18 Lisinopril 10 mg PO DAILY 06/08/18 Metformin HCl [Glucophage] 1,000 mg PO BID 06/08/18
[2018-07-20 14:52] VITALS: BP 140/77; PULSE 80; TEMP 98.6
== END 2018-07-20 14:44 | disposition home or self-care (01) | DRG 463 ==
LOC: JER 18:49 → SUPCPDRO 18:49 → JERBED 07-18 01:30 → J4W 07-18 11:44 → OBSVTOIN 07-19 13:36
PROVIDERS: ADMIT Family Medicine; ATTEND Family Medicine
DX: N30.01 Acute cystitis with hematuria (principal); I10 Essential (primary) hypertension; E78.5 Hyperlipidemia, unspecified; E11.9 Type 2 diabetes mellitus without complications; I69.351 Hemiplegia and hemiparesis following cerebral infarction affecting right dominant side; E87.5 Hyperkalemia; I25.10 Atherosclerotic heart disease of native coronary artery without angina pectoris; D64.9 Anemia, unspecified; Z87.891 Personal history of nicotine dependence
CPT/HCPCS: 36415; 71045-TC-FY; 74176-TC; 80048; 80053; 81003; 81015; 82550; 82962; 83735; 84100; 84484; 85025; 85610; 85730; 87086; 93005; 93010; 99284-25; G0378; J7030